=== PATIENT | male | born 1950 | race Caucasian/White ===

== ENCOUNTER 2020-08-04 09:58 | Inpatient (IN) ==
[2020-08-04] MEDS ORDERED: 0.9 % SODIUM CHLORIDE 1,000 ML IV ONE ×2 (10:37→11:49)
--- NOTE | 2020-08-04 11:02 | Cat Scan Report ---
CLINICAL INFORMATION: Acute mental status change COMPARISON: Brain MRI 06/09/2008 TECHNIQUE: 2.5 mm helical slices were obtained in the skull base to vertex. Following reconstruction, axial reformatted images were reviewed at bone and parenchymal windows. The exam was performed using radiation dose optimization techniques including, but not limited to, automated exposure control, adjustment of the mA and/or kV according to patient size and use of iterative reconstruction technique. FINDINGS: The ventricles, sulci, fissures, and cisterns are symmetrically enlarged bowel mild age-related atrophy - no change.. No extra-axial fluid collections are identified. Mild patchy chronic ischemic changes, in the deep cerebral white matter, expected for age and also unchanged. There is no evidence of hemorrhage, mass effect, or edema. Bone windows show no osseous abnormality. IMPRESSION: Mild atrophy and minimal chronic ischemic changes in the cerebral white matter expected for age and stable.. Interpreted and Authenticated by: Vipul Gaviria 08/04/20
[2020-08-04 11:13] LABS: POC Blood Urea Nitrogen 20 mg/dL (6-20); POC CO2 26 mmol/L (22-30); POC Calcium, Ionized 1.14 mmEq/L (1.16-1.32); POC Chloride 102 mEq/L (96-108); POC Creatinine 0.7 mg/dL (0.6-1.2); POC Glucose, Random 104 mg/dL (70-105); POC Hematocrit 50 % (41-55); POC Sodium 140 mEq/L (133-145)
--- NOTE | 2020-08-04 11:29 | Emergency Department Note ---
Anxiety HPI General Chief Complaint: Anxiety Stated Complaint: medication withdrawl Time Seen by Provider: 08/04/20 10:24 Source: patient, family, RN notes reviewed and old records reviewed Mode of arrival: ambulatory Limitations: no limitations History of Present Illness HPI Narrative: Narrative: complaint: anxiety Onset (ago): week(s) (1) Symptoms: dyspnea, palpitations, extremity numbness/tingling and other (Confusion) Severity: moderate and similar to previous episodes Quality: intermittent Place: home History of similar episodes: Yes Provoking factors: other (Tapering off clonazepam) Improves with: medication Worsens with: other (Insomnia) Associated symptoms: Reports palpitations and confusion; Denies chest pain, shortness of breath, diaphoresis, fever/chills, headaches, anorexia, malaise, nausea/vomiting, syncope and weakness Related Data Home Medications Medication Instructions Recorded Confirmed omeprazole 20 mg PO DAILY 09/02/16 08/04/20 Previous Rx's Medication Instructions Recorded sildenafil 100 mg tablet 100 mg PO QDAY PRN #30 tab 01/13/20 escitalopram oxalate 20 mg tablet 20 mg PO QDAY #90 tab 01/21/20 clonazepam 1 mg tablet 1 mg PO QHS #30 tab 07/20/20 Allergies Allergy/AdvReac Type Severity Reaction Status Date / Time No Known Drug Allergies Allergy Verified 08/04/20 10:03 [place] Dust Allergy Unknown Cough Uncoded 06/17/20 13:51 Review of Systems ROS ROS Narrative: Narrative: All systems ED: reviewed and negative except as stated. PFS Narrative Patient History Narrative: Narrative: Medical/Surgical/Family History All Active Problems (Updated 08/04/20 @ 16:24 by Tino Storey MD) Benzodiazepine withdrawal (Acute) Sedative, hypnotic or anxiolytic dependence with withdrawal with perceptual disturbance (Acute) Constipation (Chronic) Insomnia (Chronic) Depression (Chronic) Hyperlipidemia (Chronic) MRSA (methicillin resistant staph aureus) culture positive (Chronic ~2003) H/O knee surgery (Chronic) H/O nephrolithotomy with removal of calculi (Chronic ~01/2009) Male erectile disorder (Chronic) DDD (degenerative disc disease), thoracolumbar (Chronic) Sleep apnea (Chronic) H/O hand surgery (Chronic ~1988) H/O shoulder surgery (Chronic ~04/30/15) H/O umbilical hernia repair (Chronic ~1989) Hemorrhoids (Chronic) Kidney stones (Chronic) HTN (hypertension) (Chronic) Pre-diabetes (Chronic) Muscle pain (Chronic) Anxiety (Chronic) Acid reflux (Chronic) History of colonoscopy (Chronic) Muscle strain of right shoulder region (Chronic) Acute shoulder bursitis (Chronic) Contusion of right chest wall (Chronic) Fall (Chronic) Viral URI with cough (Chronic) Wheezing (Chronic) Laceration (Chronic) Medical History (Updated 08/04/20 @ 16:24 by Tino Storey MD) Acid reflux Acute shoulder bursitis Anxiety Continue Lexapro 20 mg daily He also takes clonazepam 2 mg nightly for sleep DDD (degenerative disc disease), thoracolumbar H/O nephrolithotomy with removal of calculi (~01/2009) Hemorrhoids HTN (hypertension) Well-controlled on lisinopril 2.5 mg daily Low-sodium diet recommended Kidney stones h/o No current complaints Male erectile disorder MRSA (methicillin resistant staph aureus) culture positive (~2003) Left hand index finger Muscle pain Muscle strain of right shoulder region Pre-diabetes Sleep apnea Surgical History H/O hand surgery (~1988) Index finger, left hand smashed H/O knee surgery Right H/O shoulder surgery (~04/30/15) Rotator cuff H/O umbilical hernia repair (~1989) History of colonoscopy Family History Father Arthritis Prostate cancer Skin cancer HTN (hypertension) Anxiety Panic disorder FH: mental illness Mother Dementia Grandfather Alzheimers disease Paternal - FH: mental illness Paternal Grandmother Heart attack Paternal - Heart disease, congenital Paternal Diabetes mellitus, type II Maternal - Cancer Maternal Uncle Heart disease, congenital Paternal CAD (coronary artery disease) Paternal Aunt Colon cancer 2 Maternal Family/Other Cancer Siblings Uterine cancer Sibilings Diverticulitis Siblings Social History Smoking Status: Never smoker Alcohol Intake Frequency: does not drink Substance Use: does not use Exam Narrative Narrative: Narrative: General Limitations: no limitations General appearance: Present alert and anxious Head Head: Present atraumatic, normocephalic and normal inspection Eye Eye: Present normal appearance, PERRL and EOMI; Absent scleral icterus and conjunctival injection ENT ENT: Present normal exam, normal oropharynx and mucous membranes moist Neck Neck: Present normal inspection, full ROM and trachea midline; Absent tenderness, lymphadenopathy and thyromegaly Chest Chest: Present normal inspection and symmetric chest wall rise; Absent tenderness Respiratory Respiratory: Present normal lung sounds bilaterally; Absent respiratory distress, wheezes, stridor, accessory muscle use and prolonged expiratory phase Cardiovascular Cardiovascular: Present regular rate and normal rhythm; Absent systolic murmur and diastolic murmur Adbominal Abdominal: Present soft; Absent distention, tenderness, guarding, rebound, rigidity, organomegaly and mass Extremities Extremities: Present normal inspection and full ROM; Absent tenderness, pedal edema, pretibial edema and calf tenderness Back Back: Present normal inspection and full ROM; Absent tenderness, CVA tenderness (R), CVA tenderness (L) and spinous process tenderness Neurological Neurological: Present alert and oriented X3 Psychiatric Psychiatric: Present agitated and anxious; Absent homicidal ideation and suicidal ideation Skin Skin: Present warm (WNL) and dry Course Vital Signs Vital signs: Vital Signs Temperature 98.4 F 08/04/20 09:59 Pulse Rate 63 08/04/20 09:59 Respiratory Rate 18 08/04/20 09:59 Blood Pressure 157/95 08/04/20 09:59 Pulse Oximetry (%) 95 08/04/20 09:59 Temperature 97.3 F 08/04/20 15:15 Pulse Rate 50 L 08/04/20 16:03 Respiratory Rate 17 08/04/20 16:03 Blood Pressure 148/89 08/04/20 15:15 Pulse Oximetry (%) 96 08/04/20 16:03 [facility] Narrative Medical decision making narrative: Narrative: Differential Diagnosis Differential Diagnosis: Behavioral disorder, benzodiazepines withdrawal, organic brain syndrome, el Medical Records Medical records reviewed: Yes I reviewed the patient's medical records. Lab Data Lab results reviewed: Yes I reviewed the patient's lab results. Result diagrams: 08/04/20 12:08 08/04/20 12:08 Labs: Lab Results 08/04/20 08/04/20 08/04/20 Range/Units 11:00 12:08 12:08 WBC 7.9 (4.5-11.0) K/mcL RBC 5.52 (4.50-5.90) M/mcL Hgb 16.9 H (13.5-16.5) g/dL Hct 49.5 (41.0-55.0) % POC Hct 50 (41-55) % MCV 89.7 (80.0-100.0) fL MCH 30.6 (26.0-34.0) pg MCHC 34.1 (31.0-36.0) g/dL RDW 11.9 (11.5-14.5) % Plt Count 173 (140-440) K/mcL MPV 10.8 H (7.4-10.4) fL Neut % (Auto) 70.0 (38.0-78.0) % Lymph % (Auto) 22.6 (15.0-49.0) % Sharkey % (Auto) 6.2 (1.0-12.0) % Eos % (Auto) 0.9 (0.0-7.0) % Baso % (Auto) 0.3 (0.0-2.0) % Lymph # (Auto) 1.78 (1.50-4.80) K/mcL Sharkey # (Auto) 0.49 (0.10-0.90) K/mcL Eos # (Auto) 0.07 (0.00-0.70) K/mcL Baso # (Auto) 0.02 (0.00-0.20) K/mcL Absolute Neutrophils 5.52 (1.80-8.00) K/mcL POC Sodium 140 (133-145) mEq/L Sodium 137 (133-145) mmol/L POC Potassium 4.0 (3.3-5.1) mEql/L Potassium 4.5 (3.3-5.1) mmol/L POC Chloride 102 (96-108) mEq/L Chloride 101 (96-108) mmol/L Carbon Dioxide 22 (22-30) mmol/L POC Total CO2 26 (22-30) mmol/L Anion Gap 14.0 (8.0-16.0) POC BUN 20 (6-20) mg/dL BUN 17 (8-23) mg/dL Creatinine 0.8 (0.7-1.2) mg/dL POC Creatinine 0.7 (0.6-1.2) mg/dL GFR Calculation 92 Glucose 92 (70-105) mg/dL POC Glucose 104 (70-105) mg/dL Calcium 9.4 (8.6-10.4) mg/dL POC WB Ioniz Calcium 1.14 L (1.16-1.32) mmEq/L Total Bilirubin 1.7 H (0.1-1.0) mg/dL AST 23 (<40) U/L ALT 10 (<40) U/L Alkaline Phosphatase 59 (39-117) U/L Total Protein 7.6 (5.9-8.4) gm/dL Albumin 4.4 (3.2-5.2) gm/dL Globulin 3.2 (2.2-3.7) gm/dL Albumin/Globulin Ratio 1.4 (1.0-2.3) TSH 1.17 (0.27-5.01) uIU/mL Urine Color Urine Appearance (Clear) Urine pH (5.0-9.0) Ur Specific [place] (1.000-1.035) Urine Protein (Negative) mg/dL Urine Glucose (UA) (Negative) mg/dL Urine Ketones (Negative) mg/dL Urine Occult Blood (Negative) mg/dL Urine Nitrate (Negative) Urine Bilirubin (Negative) mg/dL Urine Urobilinogen mg/dL Ur Leukocyte Esterase (Negative) /ug Urine RBC (0-3) /hpf Urine WBC (0-4) /hpf Ur Squamous Epith Cells (0-4) /hpf Urine Bacteria (0) /hpf Ur Culture Indicated? Urine Opiates Screen Ur Opiates Confirm Ur Oxycodone Screen Urine Methadone Screen Ur Methadone Confirm Ur Barbiturates Screen Ur Barbiturate Confirm Ur Phencyclidine Scrn Urine PCP Confirm Ur Amphetamines Screen U Amphetamines Confirm U Benzodiazepines Scrn U Benzodiazepine Confm Urine Cocaine Screen Urine Cocaine Confirm U Cannabinoids Confirm U Marijuana (THC) Screen Ethyl Alcohol (<0.010) gm/dL 08/04/20 08/04/20 08/04/20 Range/Units 12:08 12:08 14:36 WBC (4.5-11.0) K/mcL RBC (4.50-5.90) M/mcL Hgb (13.5-16.5) g/dL Hct (41.0-55.0) % POC Hct (41-55) % MCV (80.0-100.0) fL MCH (26.0-34.0) pg MCHC (31.0-36.0) g/dL RDW (11.5-14.5) % Plt Count (140-440) K/mcL MPV (7.4-10.4) fL Neut % (Auto) (38.0-78.0) % Lymph % (Auto) (15.0-49.0) % Sharkey % (Auto) (1.0-12.0) % Eos % (Auto) (0.0-7.0) % Baso % (Auto) (0.0-2.0) % Lymph # (Auto) (1.50-4.80) K/mcL Sharkey # (Auto) (0.10-0.90) K/mcL Eos # (Auto) (0.00-0.70) K/mcL Baso # (Auto) (0.00-0.20) K/mcL Absolute Neutrophils (1.80-8.00) K/mcL POC Sodium (133-145) mEq/L Sodium (133-145) mmol/L POC Potassium (3.3-5.1) mEql/L Potassium (3.3-5.1) mmol/L POC Chloride (96-108) mEq/L Chloride (96-108) mmol/L Carbon Dioxide (22-30) mmol/L POC Total CO2 (22-30) mmol/L Anion Gap (8.0-16.0) POC BUN (6-20) mg/dL BUN (8-23) mg/dL Creatinine (0.7-1.2) mg/dL POC Creatinine (0.6-1.2) mg/dL GFR Calculation Glucose (70-105) mg/dL POC Glucose (70-105) mg/dL Calcium (8.6-10.4) mg/dL POC WB Ioniz Calcium (1.16-1.32) mmEq/L Total Bilirubin (0.1-1.0) mg/dL AST (<40) U/L ALT (<40) U/L Alkaline Phosphatase (39-117) U/L Total Protein (5.9-8.4) gm/dL Albumin (3.2-5.2) gm/dL Globulin (2.2-3.7) gm/dL Albumin/Globulin Ratio (1.0-2.3) TSH (0.27-5.01) uIU/mL Urine Color Straw Urine Appearance Clear (Clear) Urine pH 6.0 (5.0-9.0) Ur Specific [place] 1.005 (1.000-1.035) Urine Protein Negative (Negative) mg/dL Urine Glucose (UA) Negative (Negative) mg/dL Urine Ketones Negative (Negative) mg/dL Urine Occult Blood 0.03 (Negative) mg/dL Urine Nitrate Negative (Negative) Urine Bilirubin Negative (Negative) mg/dL Urine Urobilinogen Negative mg/dL Ur Leukocyte Esterase Negative (Negative) /ug Urine RBC 1 (0-3) /hpf Urine WBC 2 (0-4) /hpf Ur Squamous Epith Cells 0 (0-4) /hpf Urine Bacteria None (0) /hpf Ur Culture Indicated? No Urine Opiates Screen None detected Ur Opiates Confirm TNP Ur Oxycodone Screen None detected Urine Methadone Screen None detected Ur Methadone Confirm TNP Ur Barbiturates Screen None detected Ur Barbiturate Confirm TNP Ur Phencyclidine Scrn None detected Urine PCP Confirm TNP Ur Amphetamines Screen None detected U Amphetamines Confirm TNP U Benzodiazepines Scrn None detected U Benzodiazepine Confm TNP Urine Cocaine Screen None detected Urine Cocaine Confirm TNP U Cannabinoids Confirm TNP U Marijuana (THC) Screen None detected Ethyl Alcohol < 0.010 (<0.010) gm/dL ED POC Tests ED POC Tests: NOMAN - SARS Antigen Negative Radiology Data Radiology results reviewed: Yes I reviewed the patient's radiology results. Radiology results narrative: Head CT with atrophy greater than age. EKG Data EKG #1: EKG attestation: Yes I reviewed and interpreted this EKG. EKG shows normal: sinus rhythm Rate: normal (65) Rhythm: NSR [place]/QRS: left axis deviation Hyperacute T waves: III Interpretation: nonspecific ST-T wave changes Pulse Oximetry Data Pulse Ox %: 95 Interpretation: 95% on room air within normal limits Discharge Plan Patient/Caregiver Discharge Instructions Pt seen by PASSENGER COACH DRIVER/PA only: No Clinical Impression: Benzodiazepine withdrawal Qualifiers: Complication of substance-induced condition: with delirium Qualified Code(s): F13.231 - Sedative, hypnotic or anxiolytic dependence with withdrawal delirium Patient Disposition: Xfer As Inpt ([facility]) Discharge Date/Time: 08/04/20 14:57
[2020-08-04] MEDS ORDERED: LORazepam 2 MG/ML VIAL IV ONE ×2 (11:49→12:25)
[2020-08-04] MEDS ORDERED: OLANZapine 10 MG VIAL IM SCH (12:30)
--- NOTE | 2020-08-04 12:44 | Behavioral Health Consult ---
HPI History of Present Illness Patient information: Note initiated : 08/04/20 at 12:36 pm Service Date, if different from initiated Date: [] Patient: Jose Luis Cagle 70 y/o M admitted on for medication withdrawl. Chief Complaint: [] History of present illness: Mr. Cagle is a 70 year old M Name: Jose Luis cagle : 1950 Date: 08/04/20 Time: 1519 EST Location of patient: [facility] Location of doctor: [place] Length of consult: 20 min This evaluation was conducted via telepsychiatry with the assistance of onsite staff Reason for consult: psychosis Requested by: Cordelia History of Present Illness: 70 year old male with a history of anxiety presented to the ED with psychosis after his PCP decreased his klonopin 4-5 days ago. He had been on klonopin 1mg po BID for 2 years. Attempted to see the qcop0alk who was yelling random things and appears to be responding to some one who is not there. He was telling women to quit doing it. He refused to talk as another psychiatrist told him he was not ready to be with his first . He then went on to say I am like my father in [facility], like my father in [facility]. bay tells him no. he did answer the klonopin was decreased 4 days ago and he has not slept. He reports bad anxiety. I have the holy spirit in my body Collateral contacted (Y/N) no____. Name Phone # , Relationship to the patient___ . If N, (No Answer/None available/Patient meets criteria for admission/Other free text reason) needs admission Sleep issues: Y- Quantity: 0 hours Quality: Psychiatric History/Treatment History: follows with a PCP for anxiety Hospitalizations: (Y/N) if Y describe: unknown Current Treatment: Medication management (Y/N) noTherapy (Y/N) no Suicide Assessment: PSS-3: 1) Over the past 2 weeks have you felt down, depressed or hopeless? (Y/N) no 2) Over the past 2 weeks have you had thoughts of killing yourself? (Y/N) no 3) Have you ever in your life attempted to kill yourself? (Y/N) no If yes, then when? Within the past 24h? (Y/N), past month? (Y/N), between 1-6 months (Y/N), > 6 months (Y/N) PSS-3 Secondary Screen If #2 is yes or #3 is yes within the past 6 months, then complete secondary screen: 1) Positive on PSS-3 questions 2 & 3 active SI with a past attempt? (Y/N) 2) Have you been thinking about how you might kill yourself? (Y/N) 3) Have you had some intention of acting on your thoughts? (Y/N) 4) Lifetime psychiatric hospitalization? (Y/N) 5) Has drinking or substance abuse ever been a problem for you? (Y/N) 6) Current irritability, agitation, or aggression? (Y/N) PSS-3 Secondary Screen Scoring: (Mild/Moderate/Severe) Mild (0-2) No current attempt and no plan/intent Moderate (3-4) No current attempt, Plan OR intent but not both Severe (5-6) Current [facility] with [facility] AND [facility] Assessment: Risk Factors h/o anxiety Stressors: medication change Attempts/Self-injury: Y/N if Y then describe: unable to assess Impulsivity: Y/N if Y then describe : unable to assess Drug/Alcohol History: Y/N - if Y then describe: unable to assess Trauma history: Y/N - if Y then describe: unable to assess Access to firearms: Y/N - if Y then describe: unable to assess HI/Violence/Property destruction: Y/N - if Y then describe: unable to assess Legal: Y/N - if Y then describe: unable to assess Family Psych History: Y/N - if Y then describe: mother dementia, denies psychiatric history Family History of suicide: (Y/N) Protective Factors Internal: coping skills, stress tolerance, External: Social supports/ Therapeutic relationships: Y/N - if Y then describe family Relationship history: Living situation: Homeless Y/N if no describe: with Employment: Y/N - if Y then describe: unable to assess Education: unable to assess Responsibility to family/children/work: Y/N - if Y then describe: unable to assess Future orientation: Y/N - if Y then describe: unable to assess Review of Systems ROS unobtainable: due to mental status PFSH PFSH All Active Problems Sedative, hypnotic or anxiolytic dependence with withdrawal with perceptual disturbance (Acute) Constipation (Chronic) Insomnia (Chronic) Depression (Chronic) Hyperlipidemia (Chronic) MRSA (methicillin resistant staph aureus) culture positive (Chronic ~2003) H/O knee surgery (Chronic) H/O nephrolithotomy with removal of calculi (Chronic ~01/2009) Male erectile disorder (Chronic) DDD (degenerative disc disease), thoracolumbar (Chronic) Sleep apnea (Chronic) H/O hand surgery (Chronic ~1988) H/O shoulder surgery (Chronic ~04/30/15) H/O umbilical hernia repair (Chronic ~1989) Hemorrhoids (Chronic) Kidney stones (Chronic) HTN (hypertension) (Chronic) Pre-diabetes (Chronic) Muscle pain (Chronic) Anxiety (Chronic) Acid reflux (Chronic) History of colonoscopy (Chronic) Muscle strain of right shoulder region (Chronic) Acute shoulder bursitis (Chronic) Contusion of right chest wall (Chronic) Fall (Chronic) Viral URI with cough (Chronic) Wheezing (Chronic) Laceration (Chronic) Medical History Acid reflux Acute shoulder bursitis Anxiety Continue Lexapro 20 mg daily He also takes clonazepam 2 mg nightly for sleep DDD (degenerative disc disease), thoracolumbar H/O nephrolithotomy with removal of calculi (~01/2009) Hemorrhoids HTN (hypertension) Well-controlled on lisinopril 2.5 mg daily Low-sodium diet recommended Kidney stones h/o No current complaints Male erectile disorder MRSA (methicillin resistant staph aureus) culture positive (~2003) Left hand index finger Muscle pain Muscle strain of right shoulder region Pre-diabetes Sleep apnea Surgical History H/O hand surgery (~1988) Index finger, left hand smashed H/O knee surgery Right H/O shoulder surgery (~04/30/15) Rotator cuff H/O umbilical hernia repair (~1989) History of colonoscopy Family History Father Arthritis Prostate cancer Skin cancer HTN (hypertension) Anxiety Panic disorder FH: mental illness Mother Dementia Grandfather Alzheimers disease Paternal - FH: mental illness Paternal Grandmother Heart attack Paternal - Heart disease, congenital Paternal Diabetes mellitus, type II Maternal - Cancer Maternal Uncle Heart disease, congenital Paternal CAD (coronary artery disease) Paternal Aunt Colon cancer 2 Maternal Family/Other Cancer Siblings Uterine cancer Sibilings Diverticulitis Siblings Social History marital status: occupational status: employed occupation: [employer] alcohol intake frequency: does not drink substance use type: does not use MEDS/ALLERGIES Home Medications and Allergies Home Medications Medication Instructions Recorded Confirmed Type omeprazole 20 mg PO DAILY 09/02/16 08/04/20 History sildenafil 100 mg tablet 100 mg PO QDAY PRN #30 tab 01/13/20 08/04/20 Rx escitalopram oxalate 20 mg tablet 20 mg PO QDAY #90 tab 01/21/20 08/04/20 Rx clonazepam 1 mg tablet 1 mg PO QHS #30 tab 07/20/20 08/04/20 Rx Allergies Allergy/AdvReac Type Severity Reaction Status Date / Time No Known Drug Allergies Allergy Verified 08/04/20 10:03 [place] Dust Allergy Unknown Cough Uncoded 06/17/20 13:51 Physical Examination Vital Signs Vital signs: Temp Pulse Resp BP Pulse Ox 98.4 F 72 18 163/108 95 08/04/20 09:59 08/04/20 12:23 08/04/20 09:59 08/04/20 12:23 08/04/20 12:23 Constitutional General appearance: no acute distress Psychiatric Psychiatric: other Additional Exam Additional exam: Mental Status Exam: Appearance and attire: he is casually groomed and dressed Attitude and behavior: laying in bed yelling Psychomotor agitation/abnormal movements: mild psychomotor agitation Speech: loud and rapid Affect and mood: labile Association and thought processes: loose associations Thought content: grandiose and religiously preoccupied Perception: he is yelling at unseen others and hearing voices Sensorium, memory, and orientation: alert and oriented to person Intellectual functioning: average Insight and judgment: poor Results Laboratory Findings CBC and BMP: 08/04/20 12:08 08/04/20 12:08 Abnormal lab findings: Abnormal Labs 08/04/20 11:00 POC WB Ioniz Calcium 1.14 L Alcohol Toxicology: ABG 08/04/20 12:08 Ethyl Alcohol Pending A/P Assessment and plan (1) Sedative, hypnotic or anxiolytic dependence with withdrawal with perceptual disturbance: Status: Acute Comment: Impression/Risk Assessment: Current Suicide Risk (Elevated? Y/N):no Current Violence Risk (Elevated? Y/N): yes Ability to care for self: Y/N no Summary: 70 yearold caucasin male with a history of anxiety who presented to the ED with psychosis after no sleeping when his klonopin was decreased rom 1mg po BID to 1 mg po q hs and he is religiously preoccupied tangential and hallucinating. Recommend to admit for sedative hypnotic withdrawal Diagnosis: Sedative hypnotic dependence withdrawal r/o bipolar with danette CPT code: 93334 Treatment Plan Admit for medical management of withdrawal Level of Care: inpatient Psychiatric Clearance: no Observation level 1:1 needed?: yes Pharmacological: Zyprexa 10mg IM q 4 hours prn agitation Recommend CIWA protocol and Ativan 2 mg q 2 hours prn for withdrawal Patient psychotic? Y/N if Y was standing antipsychotic medication started Y/N yes Therapy: supportive Follow up needed while in hospital?: Y/N/NA if Y then frequency, yes daily Discussed plan with onsite count team clerk, who? (Y/N): Who ED physician Other: Time Spent With Patient Time: 20 min Total time spent is greater than 50% in coordination of care (as documented) at patient's floor/unit and/or counseling patient:
--- NOTE | 2020-08-04 14:26 | Internal Med History&Physical ---
HPI History of Present Illness Patient information: Note initiated : 08/04/20 at 2:22 pm Service Date, if different from initiated Date: [] Patient: Jose Luis Meyer a 70 y/o M admitted on for medication withdrawl. Chief Complaint: [] History of present illness: Mr. Meyer is a 70 year old male with a history of hyperlipidemia, depression, generalized anxiety disorder, insomnia who presented to the emergency department feeling anxious. In the ED the patient developed agitation requiring Zyprexa administration. His clinical picture was consistent with benzodiazepine withdrawal as his provider had recently been trying to taper clonazepam. The patient was given Ativan multiple times, his anxiety and withdrawal symptoms improved. Hospital medicine was asked to admit the patient for further management. After receiving multiple doses of Ativan, the patient appeared calm and was able to provide some history. The patient's provided collateral information and said the patient ran out of clonazepam about four days ago and was then prescribed a lower tapering dose but developed anxiety and behavioral changes. The patient was brought the the ED and initially agitated but calmed down after multiple doses of ativan and a dose of zyprexa. Review of systems Constitutional: no fever, fatigue, or weight loss Eyes: no vision changes or pain Cardiovascular: no chest pain, no palpitations Respiratory: no cough or dyspnea Gastrointestinal: no abdominal pain, no nausea, vomiting, or diarrhea Genitourinary: no dysuria or difficulty voiding Musculoskeletal: no arthralgia or myalgia Integumentary: no skin lesion or wound Neurological: no focal weakness or numbness Psychiatric: positive for anxiety Physical exam Head: Atraumatic, normal inspection. Eyes: normal appearance, no scleral icterus. Neck: full ROM Respiratory: no respiratory distress. Cardiovascular: normal rate and rhythm, S1, S2. GI/Abdominal: soft, nontender, no guarding. Extremities: full range of motion, nontender. Neurological: Alert and oriented, CN II-XII intact, intact motor, intact sensation. Psychiatric: Appears anxious, negative for agitation, negative for hallucinations. Skin: warm, normal color PFSH PFSH All Active Problems Sedative, hypnotic or anxiolytic dependence with withdrawal with perceptual disturbance (Acute) Constipation (Chronic) Insomnia (Chronic) Depression (Chronic) Hyperlipidemia (Chronic) MRSA (methicillin resistant staph aureus) culture positive (Chronic ~2003) H/O knee surgery (Chronic) H/O nephrolithotomy with removal of calculi (Chronic ~01/2009) Male erectile disorder (Chronic) DDD (degenerative disc disease), thoracolumbar (Chronic) Sleep apnea (Chronic) H/O hand surgery (Chronic ~1988) H/O shoulder surgery (Chronic ~04/30/15) H/O umbilical hernia repair (Chronic ~1989) Hemorrhoids (Chronic) Kidney stones (Chronic) HTN (hypertension) (Chronic) Pre-diabetes (Chronic) Muscle pain (Chronic) Anxiety (Chronic) Acid reflux (Chronic) History of colonoscopy (Chronic) Muscle strain of right shoulder region (Chronic) Acute shoulder bursitis (Chronic) Contusion of right chest wall (Chronic) Fall (Chronic) Viral URI with cough (Chronic) Wheezing (Chronic) Laceration (Chronic) Medical History Acid reflux Acute shoulder bursitis Anxiety Continue Lexapro 20 mg daily He also takes clonazepam 2 mg nightly for sleep DDD (degenerative disc disease), thoracolumbar H/O nephrolithotomy with removal of calculi (~01/2009) Hemorrhoids HTN (hypertension) Well-controlled on lisinopril 2.5 mg daily Low-sodium diet recommended Kidney stones h/o No current complaints Male erectile disorder MRSA (methicillin resistant staph aureus) culture positive (~2003) Left hand index finger Muscle pain Muscle strain of right shoulder region Pre-diabetes Sleep apnea Surgical History H/O hand surgery (~1988) Index finger, left hand smashed H/O knee surgery Right H/O shoulder surgery (~04/30/15) Rotator cuff H/O umbilical hernia repair (~1989) History of colonoscopy Family History Father Arthritis Prostate cancer Skin cancer HTN (hypertension) Anxiety Panic disorder FH: mental illness Mother Dementia Grandfather Alzheimers disease Paternal - FH: mental illness Paternal Grandmother Heart attack Paternal - Heart disease, congenital Paternal Diabetes mellitus, type II Maternal - Cancer Maternal Uncle Heart disease, congenital Paternal CAD (coronary artery disease) Paternal Aunt Colon cancer 2 Maternal Family/Other Cancer Siblings Uterine cancer Sibilings Diverticulitis Siblings Social History marital status: occupational status: employed occupation: [employer] alcohol intake frequency: does not drink substance use type: does not use MEDS/ALLERGIES Home Medications and Allergies Home Medications Medication Instructions Recorded Confirmed Type omeprazole 20 mg PO DAILY 09/02/16 08/04/20 History sildenafil 100 mg tablet 100 mg PO QDAY PRN #30 tab 01/13/20 08/04/20 Rx escitalopram oxalate 20 mg tablet 20 mg PO QDAY #90 tab 01/21/20 08/04/20 Rx clonazepam 1 mg tablet 1 mg PO QHS #30 tab 07/20/20 08/04/20 Rx Allergies Allergy/AdvReac Type Severity Reaction Status Date / Time No Known Drug Allergies Allergy Verified 08/04/20 10:03 [place] Dust Allergy Unknown Cough Uncoded 06/17/20 13:51 EXAM Constitutional Vitals: Temp Pulse Resp BP Pulse Ox 98.4 F 51 L 18 126/78 97 08/04/20 09:59 08/04/20 14:07 08/04/20 09:59 08/04/20 14:01 08/04/20 14:07 DATA Data Completed and Pending Labs: Labs from last 24 hours 08/04/20 08/04/20 08/04/20 12:08 12:08 12:08 WBC RBC Hgb Hct POC Hct MCV MCH MCHC RDW Plt Count MPV Neut % (Auto) POC Sodium Sodium Pending POC Potassium Potassium Pending POC Chloride Chloride Pending Carbon Dioxide Pending POC Total CO2 Anion Gap Pending POC BUN BUN Pending Creatinine Pending POC Creatinine GFR Calculation Pending Glucose Pending POC Glucose Calcium Pending POC WB Ioniz Calcium Total Bilirubin Pending AST Pending ALT Pending Alkaline Phosphatase Pending Total Protein Pending Albumin Pending Globulin Pending Albumin/Globulin Ratio Pending TSH Pending Urine Opiates Screen Pending Ur Opiates Confirm Pending Ur Oxycodone Screen Pending Urine Methadone Screen Pending Ur Methadone Confirm Pending Ur Barbiturates Screen Pending Ur Barbiturate Confirm Pending Ur Phencyclidine Scrn Pending Urine PCP Confirm Pending Ur Amphetamines Screen Pending U Amphetamines Confirm Pending U Benzodiazepines Scrn Pending U Benzodiazepine Confm Pending Urine Cocaine Screen Pending Urine Cocaine Confirm Pending U Cannabinoids Confirm Pending U Marijuana (THC) Screen Pending Ethyl Alcohol Pending 08/04/20 08/04/20 12:08 11:00 WBC Pending RBC Pending Hgb Pending Hct Pending POC Hct 50 MCV Pending MCH Pending MCHC Pending RDW Pending Plt Count Pending MPV Pending Neut % (Auto) Pending POC Sodium 140 Sodium POC Potassium 4.0 Potassium POC Chloride 102 Chloride Carbon Dioxide POC Total CO2 26 Anion Gap POC BUN 20 BUN Creatinine POC Creatinine 0.7 GFR Calculation Glucose POC Glucose 104 Calcium POC WB Ioniz Calcium 1.14 L Total Bilirubin AST ALT Alkaline Phosphatase Total Protein Albumin Globulin Albumin/Globulin Ratio TSH Urine Opiates Screen Ur Opiates Confirm Ur Oxycodone Screen Urine Methadone Screen Ur Methadone Confirm Ur Barbiturates Screen Ur Barbiturate Confirm Ur Phencyclidine Scrn Urine PCP Confirm Ur Amphetamines Screen U Amphetamines Confirm U Benzodiazepines Scrn U Benzodiazepine Confm Urine Cocaine Screen Urine Cocaine Confirm U Cannabinoids Confirm U Marijuana (THC) Screen Ethyl Alcohol A/P Narrative A/P Narrative: Assessment: 10 year old male with a history of hyperlipidemia, depression, generalized anxiety disorder, insomnia admitted for benzodiazepine withdrawal. Prior to admission, the patient was tapering off clonazepam however ran out of clonazepam about 4 days ago. #Benzodiazepine withdrawal (clonazepam) #Depression #Generalized anxiety disorder #Hyperlipidemia #GERD Plan -CIWA protocol with Ativan PO/IV as needed. -As needed Precedex in case patient develops severe agitation due to withdrawal. -Haldol IV as needed for severe agitation. -Continue home Lexapro, Prilosec. -CODE STATUS: Full -Disposition: Home after completing withdrawal. Time Spent With Patient Time: Total time spent is greater than 50% in coordination of care (as documented) at patient's floor/unit and/or counseling patient:
--- NOTE | 2020-08-04 14:55 | EKG ---
[facility] Test Date: 2020-08-04 Pat Name: Jose Luis Meyer Department: ED Room: Gender: Male [employer] Operator: : 1950 Requested By: Tino Storey Order Number: [id number] Reading MD: Chris Goldberg M.D. Measurements Intervals [place] Rate: 65 P: 52 LA: 165 QRS: -22 QRSD: 108 T: 1 QT: 434 QTc: 452 Interpretive Statements Sinus rhythm Borderline T abnormalities, inferior leads NO PRIOR TRACING FOR COMPARISON Electronically Signed On 08-04-2020 14:55:35 PDT by Chris Goldberg M.D. /[email or web address]/[id number]
[2020-08-04] MEDS ORDERED: LORazepam 2 MG/ML VIAL IV PRN (15:12)
[2020-08-04] MEDS ORDERED: ONDANSETRON 4 MG/2 ML VIAL IV PRN (15:12)
[2020-08-04] MEDS ORDERED: HALOPERIDOL LACTATE 5 MG/ML VIAL IV PRN (15:12)
[2020-08-04] MEDS ORDERED: DEXMEDETOMIDINE 400 MCG in PREMIX 1 BAG IV PRN (15:12)
[2020-08-04] MEDS ORDERED: LORazepam 1 MG TABLET PO PRN (15:12)
[2020-08-04] MEDS ORDERED: SENNOSIDES 1 TABLET PO PRN (15:12)
[2020-08-04] MEDS ORDERED: LACTULOSE 20 GM/30 ML ORAL.SOL PO PRN (15:12)
[2020-08-04 15:31] LABS: Basophils # (Auto) 0.02 K/mcL (0.00-0.20); Basophils % (Auto) 0.3 % (0.0-2.0); Eosinophils # (Auto) 0.07 K/mcL (0.00-0.70); Eosinophils % (Auto) 0.9 % (0.0-7.0); Hematocrit 49.5 % (41.0-55.0); Hemoglobin 16.9 g/dL (13.5-16.5); Lymphocytes # (Auto) 1.78 K/mcL (1.50-4.80); Lymphocytes % (Auto) 22.6 % (15.0-49.0); Mean Cell Volume 89.7 fL (80.0-100.0); Mean Corpuscular HGB Conc 34.1 g/dL (31.0-36.0); Mean Platelet Volume 10.8 fL (7.4-10.4); Monocytes # (Auto) 0.49 K/mcL (0.10-0.90); Monocytes % (Auto) 6.2 % (1.0-12.0); Platelet Count 173 K/mcL (140-440); RBC 5.52 M/mcL (4.50-5.90); Red Cell Distribution Width 11.9 % (11.5-14.5); WBC 7.9 K/mcL (4.5-11.0)
[2020-08-04 15:33] LABS: Amphetamine Screen,Urine None detected; Barbiturate Screen,Urine None detected; Benzodiazepines Screen,Urine None detected; Cannabinoid Screen,Urine None detected; Cocaine Screen,Urine None detected; Opiate Screen,Urine None detected; Oxycodone, Urine Screen None detected; Phencyclidine Screen,Urine None detected
[2020-08-04 15:41] LABS: Alcohol, Blood < 10.0 mg/dL; Alcohol,Blood < 0.010 gm/dL (<0.010)
[2020-08-04 15:43] LABS: Appearance,Urine CLEAR (Clear); Bilirubin,Urine Negative (Negative); Color,Urine STRAW; Culture Indicated,Urine No; Glucose,Urine (UA) Negative (Negative); Ketones,Urine Negative (Negative); Leukocyte Esterase,Urine Negative /ug (Negative); Nitrate,Urine Negative (Negative); Protein,Urine Negative (Negative); Specific Gravity,Urine 1.005 (1.000-1.035); Urine Blood 0.03 mg/dL (Negative); Urine RBC 1 /hpf (0-3); Urine Squamous Epithelial Cell 0 /hpf (0-4); Urine WBC 2 /hpf (0-4); Urobilinogen,Urine Negative
[2020-08-04 15:54] LABS: ALT/SGPT 10 U/L (<40); AST/SGOT 23 U/L (<40); Albumin 4.4 gm/dL (3.2-5.2); Albumin/Globulin Ratio 1.4 (1.0-2.3); Alkaline Phosphatase 59 U/L (39-117); Bilirubin,Total 1.7 mg/dL (0.1-1.0); Blood Urea Nitrogen 17 mg/dL (8-23); Calcium 9.4 mg/dL (8.6-10.4); Carbon Dioxide 22 mmol/L (22-30); Chloride 101 mmol/L (96-108); Globulin 3.2 gm/dL (2.2-3.7); Glomerular Filtration Rate 92; Glucose 92 mg/dL (70-105); Thyroid Stimulating Hormone 1.17 uIU/mL (0.27-5.01)
[2020-08-04] MEDS: DOCUSATE SODIUM 100 MG CAPSULE PO SCH (21:04)
[2020-08-04] MEDS ORDERED: 0.9 % SODIUM CHLORIDE 10 ML SYRINGE IV SCH (22:00)
[2020-08-04] MEDS: 0.9 % SODIUM CHLORIDE 10 ML SYRINGE IV SCH (22:19)
[2020-08-05] MEDS: 0.9 % SODIUM CHLORIDE 10 ML SYRINGE IV SCH ×3 (05:53→22:31)
[2020-08-05 07:08] LABS: Basophils # (Auto) 0.04 K/mcL (0.00-0.20); Basophils % (Auto) 0.5 % (0.0-2.0); Eosinophils % (Auto) 3.5 % (0.0-7.0); Hematocrit 47.7 % (41.0-55.0); Hemoglobin 15.8 g/dL (13.5-16.5); Lymphocytes # (Auto) 2.36 K/mcL (1.50-4.80); Lymphocytes % (Auto) 27.3 % (15.0-49.0); Mean Cell Volume 91.4 fL (80.0-100.0); Mean Corpuscular HGB Conc 33.1 g/dL (31.0-36.0); Mean Platelet Volume 10.4 fL (7.4-10.4); Monocytes # (Auto) 0.62 K/mcL (0.10-0.90); Monocytes % (Auto) 7.2 % (1.0-12.0); Neutrophils % (Auto) 61.5 % (38.0-78.0); Platelet Count 155 K/mcL (140-440); RBC 5.22 M/mcL (4.50-5.90); Red Cell Distribution Width 12.1 % (11.5-14.5); WBC 8.6 K/mcL (4.5-11.0)
[2020-08-05 07:44] LABS: ALT/SGPT 11 U/L (<40); AST/SGOT 15 U/L (<40); Albumin 3.8 gm/dL (3.2-5.2); Albumin/Globulin Ratio 1.4 (1.0-2.3); Alkaline Phosphatase 58 U/L (39-117); Blood Urea Nitrogen 16 mg/dL (8-23); Carbon Dioxide 29 mmol/L (22-30); Chloride 102 mmol/L (96-108); Globulin 2.7 gm/dL (2.2-3.7); Glomerular Filtration Rate 92; Glucose 85 mg/dL (70-105)
[2020-08-05] MEDS: OMEPRAZOLE 20 MG CAPSULE PO SCH (07:49)
[2020-08-05] MEDS: ESCITALOPRAM 20 MG TABLET PO SCH (09:06)
[2020-08-05] MEDS: clonazePAM 1 MG TABLET PO SCH (09:06)
[2020-08-05] MEDS: DOCUSATE SODIUM 100 MG CAPSULE PO SCH ×2 (09:06→21:51)
--- NOTE | 2020-08-05 10:26 | Internal Med Progress Note ---
SUBJECTIVE Subjective Patient information: Note initiated : 08/05/20 at 10:21 am Service Date, if different from initiated Date: [] Patient: Jose Luis Meeyr 70 y/o M admitted on 08/04/20 for medication withdrawl. Chief Complaint: [] Interval history: Mr. Meyer is a 70 year old male with a history of hyperlipidemia, depression, generalized anxiety disorder, insomnia who presented to the emergency department feeling anxious. In the ED the patient developed agitation requiring Zyprexa administration. His clinical picture was consistent with benzodiazepine withdrawal as his provider had recently been trying to taper clonazepam. The patient was given Ativan multiple times, his anxiety and withdrawal symptoms improved. Hospital medicine was asked to admit the patient for further management. After receiving multiple doses of Ativan, the patient appeared calm and was able to provide some history. The patient's provided collateral information and said the patient ran out of clonazepam about four days ago and was then prescribed a lower tapering dose but developed anxiety and behavioral changes. The patient was brought the the ED and initially agitated but calmed down after multiple doses of ativan and a dose of zyprexa. 08/05 Slept well most of last night, received Ativan 2 mg PO for withdrawal symptoms. Started Clonazepam 1 mg daily today, will monitor for withdrawal symptoms through tomorrow. If no withdrawal symptoms then could discharge on Clonazepam 1 mg daily with 25% reduction in dose every 7 days. If a higher dose required then could still use a 25% dose reduction every 7 days from discharge dose. Patient ok with staying another night. Review of systems: does not feel anxious, no shortness of breath, no chest pain Physical exam Head: Atraumatic, normal inspection. Eyes: normal appearance, no scleral icterus. Neck: full ROM Respiratory: no respiratory distress. Cardiovascular: normal rate and rhythm, S1, S2. GI/Abdominal: soft, nontender, no guarding. Extremities: full range of motion, nontender. Neurological: Alert and oriented, CN II-XII intact, intact motor, intact sensation. Psychiatric: Normal mood. Skin: warm, normal color Constitutional Vitals: Vital Signs Temp Pulse Resp BP Pulse Ox 99.0 F 77 17 144/92 96 08/05/20 08:08 08/05/20 08:08 08/05/20 08:08 08/05/20 08:01 08/05/20 08:08 Period Temp Pulse Resp BP Sys/[place] Pulse Ox Last 24 Hr 97.3 F-99.0 F 48-80 15-21 102-203/64-127 92-99 Intake and Output 08/04/20 08/05/20 08/05/20 21:59 05:59 13:59 Intake Total 0 Output Total 350 350 Balance -350 -350 Weight 85.684 kg Intake & Output: Intake & Output 08/04/20 08/05/20 08/05/20 21:59 05:59 13:59 Intake Total 0 Output Total 350 350 Balance -350 -350 Weight 85.684 kg Intake: Oral 0 Output: Void Amount 350 350 Other: Meal Dinner Percent of Meal Consumed 100% Feeding Ability Independent Urine Appearance Clear Urine Color Dark Yellow Pale Urine Odor Normal OBJ DATA Labs CBC & Chem 7: 08/05/20 05:32 08/05/20 05:32 Labs: Abnormal Lab Results 08/05/20 08/04/20 08/04/20 05:32 12:08 12:08 Hgb 16.9 H MPV 10.8 H Anion Gap 7.0 L POC WB Ioniz Calcium Total Bilirubin 1.7 H 08/04/20 11:00 Hgb MPV Anion Gap POC WB Ioniz Calcium 1.14 L Total Bilirubin Meds: Medications Clonazepam (Clonazepam 1 Mg Tablet) 1 mg PO DAILY [facility] Last Admin: 08/05/20 09:06 Dose: 1 mg Documented by: Docusate Sodium (Docusate Sodium 100 Mg Capsule) 100 mg PO BID [facility] Last Admin: 08/05/20 09:06 Dose: 100 mg Documented by: Escitalopram Oxalate (Escitalopram 20 Mg Tablet) 20 mg PO DAILY [facility] Last Admin: 08/05/20 09:06 Dose: 20 mg Documented by: Lactulose (Lactulose 20 Gm/30 Ml Oral.Shelli) 10 gm PO DAILYP PRN PRN Reason: Constipation Omeprazole (Omeprazole 20 Mg Capsule) 20 mg PO ACB [facility] Last Admin: 08/05/20 07:49 Dose: 20 mg Documented by: Ondansetron HCl (Ondansetron 4 Mg/2 Ml Vial) 4 mg IV Q4HP PRN; Protocol PRN Reason: Nausea And Vomiting Senna (Sennosides 1 Tablet) 2 tab PO HSP PRN PRN Reason: Constipation Sodium Chloride (0.9 % Sodium Chloride 10 Ml Syringe) 10 ml IV Q8 [facility] Last Admin: 08/05/20 05:53 Dose: 10 ml Documented by: A/P Narrative A/P Narrative: Assessment: 10 year old male with a history of hyperlipidemia, depression, generalized anxiety disorder, insomnia admitted for benzodiazepine withdrawal. Prior to admission, the patient was tapering off clonazepam however ran out of clonazepam about 4 days ago. #Benzodiazepine withdrawal (clonazepam) #Depression #Generalized anxiety disorder #Hyperlipidemia #GERD Plan -Start Clonazepam 1 mg daily, monitor for withdrawal. -Clonazepam .25 mg prn for withdrawal symptoms. -Continue home Lexapro, Prilosec. -CODE STATUS: Full -Disposition: Home after baseline dose of clonazepam is established followed by a prolonged taper. The most simple taper would probably be a 25% dose reduction every 7 days. Time Spent With Patient Time: Total time spent is greater than 50% in coordination of care (as documented) at patient's floor/unit and/or counseling patient: QUALITY Stroke Symptom Onset Unknown: No VTE Deep Vein Thrombosis/Pulmonary Embolism Present on Admission: No
[2020-08-05] MEDS ORDERED: clonazePAM 0.5 MG TABLET PO PRN (11:00)
--- NOTE | 2020-08-05 13:25 | Discharge Summary ---
Discharge Provider Provider Patient information: Note initiated : 08/05/20 at 1:23 pm Service Date, if different from initiated Date: [] Patient: Jose Luis Meyer 70 y/o M admitted on 08/04/20 for medication withdrawl. Chief Complaint: [] Date of admission: 08/04/20 14:57 Discharge date: 08/06/20 Primary care physician: Ramez Elam M.D., F.A.A.F.P. Consults: 08/04/20 Consult to Physician [CONS] Stat Comment: Consulting Provider: [facility] Reason For Exam: Physician to Consult 08/04/20 12:32 Consult to Physician [CONS] Stat Comment: Consulting Provider: Charles Mcmanus Reason For Exam: Physician to Consult Discharge Meds Discharge Medications Home Medications omeprazole 20 mg PO DAILY 09/02/16 [History Confirmed 08/04/20 Last Taken 08/03/20] sildenafil 100 mg tablet 100 mg PO QDAY PRN #30 tab 01/13/20 [Rx Confirmed 08/04/20 Last Taken Unknown] escitalopram oxalate 20 mg tablet 20 mg PO QDAY #90 tab 01/21/20 [Rx Confirmed 08/04/20 Last Taken 08/03/20] clonazepam See Rx Instructions .ROUTE .COMPLEX #25 tab 08/06/20 [Rx Last Taken Unknown] COURSE Hospital Course Hospital course: Interval history: Mr. Meyer is a 70 year old male with a history of hyperlipidemia, depression, generalized anxiety disorder, insomnia who presented to the emergency department feeling anxious. In the ED the patient developed agitation requiring Zyprexa administration. His clinical picture was consistent with benzodiazepine withdrawal as his provider had recently been trying to taper clonazepam. The patient was given Ativan multiple times, his anxiety and withdrawal symptoms improved. Hospital medicine was asked to admit the patient for further management. After receiving multiple doses of Ativan, the patient appeared calm and was able to provide some history. The patient's provided collateral information and said the patient ran out of clonazepam about four days ago and was then prescribed a lower tapering dose but developed anxiety and behavioral changes. The patient was brought the the ED and initially agitated but calmed down after multiple doses of ativan and a dose of zyprexa. 08/05 Slept well most of last night, received Ativan 2 mg PO for withdrawal symptoms. Started Clonazepam 1 mg daily today, will monitor for withdrawal symptoms through tomorrow. If no withdrawal symptoms then could discharge on Clonazepam 1 mg daily with 25% reduction in dose every 7 days. If a higher dose required then could still use a 25% dose reduction every 7 days from discharge dose. Patient ok with staying another night. 08/06 Feeling well. No overnight event or new complaints. Directed patient to monitor blood pressure twice daily and bring log to PCP. Assessment: #Benzodiazepine withdrawal (clonazepam) #Depression #Generalized anxiety disorder #Hyperlipidemia #GERD Discharge diagnosis: Benzodiazepine withdrawal Secondary discharge diagnosis: Depression anxiety hyperlipidemia GERD Time Spent with Patient Time attestation: Total time spent providing and/or coordinating discharge services: Time spent: Greater than 30 minutes EXAM Constitutional Vitals: Temp Pulse Resp BP Pulse Ox 98.2 F 58 L 18 118/80 96 08/05/20 12:01 08/05/20 12:04 08/05/20 12:04 08/05/20 12:01 08/05/20 12:04 Discharge Data Data Completed and Pending Labs on day of discharge: Labs from last 24 hours 08/05/20 08/05/20 08/05/20 05:32 05:32 05:32 WBC 8.6 RBC 5.22 Hgb 15.8 Hct 47.7 MCV 91.4 MCH 30.3 MCHC 33.1 RDW 12.1 Plt Count 155 MPV 10.4 Neut % (Auto) 61.5 Lymph % (Auto) 27.3 Perry % (Auto) 7.2 Eos % (Auto) 3.5 Baso % (Auto) 0.5 Lymph # (Auto) 2.36 Perry # (Auto) 0.62 Eos # (Auto) 0.30 Baso # (Auto) 0.04 Absolute Neutrophils 5.31 Sodium 138 Potassium 4.3 Chloride 102 Carbon Dioxide 29 Anion Gap 7.0 L BUN 16 Creatinine 0.8 GFR Calculation 92 Glucose 85 Calcium 9.0 Magnesium 2.1 Total Bilirubin 1.0 AST 15 ALT 11 Alkaline Phosphatase 58 Total Protein 6.5 Albumin 3.8 Globulin 2.7 Albumin/Globulin Ratio 1.4 TSH Urine Color Urine Appearance Urine pH Ur Specific Gibson Urine Protein Urine Glucose (UA) Urine Ketones Urine Occult Blood Urine Nitrate Urine Bilirubin Urine Urobilinogen Ur Leukocyte Esterase Urine RBC Urine WBC Ur Squamous Epith Cells Urine Bacteria Ur Culture Indicated? Urine Opiates Screen Ur Opiates Confirm Ur Oxycodone Screen Urine Methadone Screen Ur Methadone Confirm Ur Barbiturates Screen Ur Barbiturate Confirm Ur Phencyclidine Scrn Urine PCP Confirm Ur Amphetamines Screen U Amphetamines Confirm U Benzodiazepines Scrn U Benzodiazepine Confm Urine Cocaine Screen Urine Cocaine Confirm U Cannabinoids Confirm U Marijuana (THC) Screen Ethyl Alcohol 08/04/20 08/04/20 08/04/20 14:36 12:08 12:08 WBC RBC Hgb Hct MCV MCH MCHC RDW Plt Count MPV Neut % (Auto) Lymph % (Auto) Perry % (Auto) Eos % (Auto) Baso % (Auto) Lymph # (Auto) Perry # (Auto) Eos # (Auto) Baso # (Auto) Absolute Neutrophils Sodium Potassium Chloride Carbon Dioxide Anion Gap BUN Creatinine GFR Calculation Glucose Calcium Magnesium Total Bilirubin AST ALT Alkaline Phosphatase Total Protein Albumin Globulin Albumin/Globulin Ratio TSH Urine Color Straw Urine Appearance Clear Urine pH 6.0 Ur Specific Gibson 1.005 Urine Protein Negative Urine Glucose (UA) Negative Urine Ketones Negative Urine Occult Blood 0.03 Urine Nitrate Negative Urine Bilirubin Negative Urine Urobilinogen Negative Ur Leukocyte Esterase Negative Urine RBC 1 Urine WBC 2 Ur Squamous Epith Cells 0 Urine Bacteria None Ur Culture Indicated? No Urine Opiates Screen None detected Ur Opiates Confirm TNP Ur Oxycodone Screen None detected Urine Methadone Screen None detected Ur Methadone Confirm TNP Ur Barbiturates Screen None detected Ur Barbiturate Confirm TNP Ur Phencyclidine Scrn None detected Urine PCP Confirm TNP Ur Amphetamines Screen None detected U Amphetamines Confirm TNP U Benzodiazepines Scrn None detected U Benzodiazepine Confm TNP Urine Cocaine Screen None detected Urine Cocaine Confirm TNP U Cannabinoids Confirm TNP U Marijuana (THC) Screen None detected Ethyl Alcohol < 0.010 08/04/20 08/04/20 12:08 12:08 WBC 7.9 RBC 5.52 Hgb 16.9 H Hct 49.5 MCV 89.7 MCH 30.6 MCHC 34.1 RDW 11.9 Plt Count 173 MPV 10.8 H Neut % (Auto) 70.0 Lymph % (Auto) 22.6 Perry % (Auto) 6.2 Eos % (Auto) 0.9 Baso % (Auto) 0.3 Lymph # (Auto) 1.78 Perry # (Auto) 0.49 Eos # (Auto) 0.07 Baso # (Auto) 0.02 Absolute Neutrophils 5.52 Sodium 137 Potassium 4.5 Chloride 101 Carbon Dioxide 22 Anion Gap 14.0 BUN 17 Creatinine 0.8 GFR Calculation 92 Glucose 92 Calcium 9.4 Magnesium Total Bilirubin 1.7 H AST 23 ALT 10 Alkaline Phosphatase 59 Total Protein 7.6 Albumin 4.4 Globulin 3.2 Albumin/Globulin Ratio 1.4 TSH 1.17 Urine Color Urine Appearance Urine pH Ur Specific Gibson Urine Protein Urine Glucose (UA) Urine Ketones Urine Occult Blood Urine Nitrate Urine Bilirubin Urine Urobilinogen Ur Leukocyte Esterase Urine RBC Urine WBC Ur Squamous Epith Cells Urine Bacteria Ur Culture Indicated? Urine Opiates Screen Ur Opiates Confirm Ur Oxycodone Screen Urine Methadone Screen Ur Methadone Confirm Ur Barbiturates Screen Ur Barbiturate Confirm Ur Phencyclidine Scrn Urine PCP Confirm Ur Amphetamines Screen U Amphetamines Confirm U Benzodiazepines Scrn U Benzodiazepine Confm Urine Cocaine Screen Urine Cocaine Confirm U Cannabinoids Confirm U Marijuana (THC) Screen Ethyl Alcohol Discharge Plan Patient/Caregiver Discharge Instructions Activity: increase activity as tolerated Diet: Regular Diet Activity Restrictions/Additional Instructions: -Taper clonazepam by 25% each week. Start with 1mg for one week then 0.75mg for one week then 0.5mg for one week then 0.25mg for one week then stop. -Monitor blood pressure twice daily and bring log to PCP Prescriptions: New clonazepam 0.5 mg tablet See Rx Instructions .ROUTE .COMPLEX Qty: 25 RF: 0 Continued escitalopram oxalate 20 mg tablet 20 mg PO QDAY Qty: 90 RF: 4 sildenafil 100 mg tablet 100 mg PO QDAY PRN (Reason: sexual activity) Qty: 30 RF: 6 omeprazole 20 MG tablet,delayed release (DR/EC) 20 mg PO DAILY RF: 0 Discontinued clonazepam 1 mg tablet 1 mg PO QHS Qty: 30 RF: 0 Follow Up Plan Follow up with: Ramez Elam MD, FAAFP [Primary Care Provider] - Patient Disposition: Home, Self-Care Prognosis: Fair Overall status at discharge: patient is progressing back to baseline Discharge Orders: Discharge Order (Routine); Ordered 08/06/20 Ordered By: Michael GORDILLO VTE Deep Vein Thrombosis/Pulmonary Embolism Present on Admission: No
[2020-08-05] MEDS ORDERED: LABETALOL 5 MG/ML ML IV PRN (17:15)
[2020-08-05] MEDS ORDERED: LORazepam 2 MG/ML VIAL IV PRN (17:15)
[2020-08-06] MEDS: 0.9 % SODIUM CHLORIDE 10 ML SYRINGE IV SCH (05:34)
[2020-08-06 06:34] LABS: ALT/SGPT 9 U/L (<40); AST/SGOT 15 U/L (<40); Albumin 3.8 gm/dL (3.2-5.2); Albumin/Globulin Ratio 1.3 (1.0-2.3); Alkaline Phosphatase 60 U/L (39-117); Bilirubin,Total 1.5 mg/dL (0.1-1.0); Blood Urea Nitrogen 13 mg/dL (8-23); Calcium 8.8 mg/dL (8.6-10.4); Carbon Dioxide 28 mmol/L (22-30); Chloride 103 mmol/L (96-108); Globulin 2.9 gm/dL (2.2-3.7); Glomerular Filtration Rate 97; Glucose 93 mg/dL (70-105)
[2020-08-06] MEDS: ESCITALOPRAM 20 MG TABLET PO SCH (08:09)
[2020-08-06] MEDS: clonazePAM 1 MG TABLET PO SCH (08:09)
[2020-08-06] MEDS: DOCUSATE SODIUM 100 MG CAPSULE PO SCH (08:09)
[2020-08-06] MEDS: OMEPRAZOLE 20 MG CAPSULE PO SCH (08:10)
== END 2020-08-06 10:35 | disposition home or self-care (01) | DRG 897 ==
LOC: ED 09:58 → ICU 14:57
PROVIDERS: ADMIT Internal Medicine; ATTEND Internal Medicine

== ENCOUNTER 2020-08-10 11:28 | Inpatient (IN) ==
[2020-08-10] MEDS ORDERED: LORazepam 2 MG/ML VIAL IV ONE (11:43)
[2020-08-10] MEDS ORDERED: OLANZapine 10 MG VIAL IM SCH ×2 (11:45→15:45)
[2020-08-10 12:19] LABS: Basophils # (Auto) 0.06 K/mcL (0.00-0.20); Basophils % (Auto) 0.8 % (0.0-2.0); Eosinophils # (Auto) 0.17 K/mcL (0.00-0.70); Eosinophils % (Auto) 2.2 % (0.0-7.0); Hematocrit 48.7 % (41.0-55.0); Hemoglobin 16.7 g/dL (13.5-16.5); Lymphocytes # (Auto) 1.49 K/mcL (1.50-4.80); Lymphocytes % (Auto) 19.3 % (15.0-49.0); Mean Corpuscular HGB Conc 34.3 g/dL (31.0-36.0); Mean Platelet Volume 10.4 fL (7.4-10.4); Monocytes # (Auto) 0.49 K/mcL (0.10-0.90); Monocytes % (Auto) 6.4 % (1.0-12.0); Neutrophils % (Auto) 71.3 % (38.0-78.0); Platelet Count 164 K/mcL (140-440); RBC 5.41 M/mcL (4.50-5.90); Red Cell Distribution Width 11.8 % (11.5-14.5); WBC 7.7 K/mcL (4.5-11.0)
--- NOTE | 2020-08-10 12:38 | Emergency Department Note ---
HPI General Chief complaint: Psychiatric Symptoms Stated complaint: mental health Time Seen by Provider: 08/10/20 12:33 Source: patient and family Mode of arrival: ambulatory Limitations: no limitations and altered mental status History of Present Illness HPI Narrative: Narrative: Patient presents emergency department for evaluation of altered mental status and agitation. Had a recent hospitalization for the same. states that he had been on clonazepam 2 mg for a couple of years. He ran out of the prescription for 4 days and then was placed on 1 mg clonazepam daily. He had agitation and anxiety with this and presented the emergency department. He is medicated with Ativan and Zyprexa with improvement per the emergency department staff and hospitalized. reports that he was discharged home on 1 mg clonazepam and she is been periodically having to give him an extra half milligram. This morning she thought he may have had a seizure he had an episode where he just kind of stared off and was not responding to her. He was seen at his primary care provider's office and had a second episode while there was not witnessed by his primary care provider but it was witnessed by clinic staff and described as a 2 to 3-minute episode of unresponsiveness without associated tremor or fasciculations and he did appear postictal afterwards. He did not have any loss of control of bowel or bladder. On arrival to the emergency department he is agitated, hugging staff, trying to give knuckle sandwiches. No other complaints. He had a head CT on recent work- up in the emergency department. Related Data Home Medications Medication Instructions Recorded Confirmed omeprazole 20 mg PO DAILY 09/02/16 08/10/20 Previous Rx's Medication Instructions Recorded sildenafil 100 mg tablet 100 mg PO QDAY PRN #30 tab 01/13/20 escitalopram oxalate 20 mg tablet 20 mg PO QDAY #90 tab 01/21/20 clonazepam 1 mg tablet 1 mg PO BID #60 tab 08/10/20 mirtazapine 7.5 mg tablet 7.5 mg PO QHS #60 tab 08/10/20 Allergies Allergy/AdvReac Type Severity Reaction Status Date / Time [place] Allergy Unknown Cough Uncoded 08/10/20 10:38 Review of Systems ROS ROS Narrative: Narrative: As above, otherwise limited due to patient's current mental status. 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 (Acute) Constipation (Chronic) Insomnia (Chronic) Depression (Chronic) Hyperlipidemia (Chronic) MRSA (methicillin resistant staph aureus) culture positive (Chronic ~2003) H/O knee surgery (Chronic) H/O nephrolithotomy with removal of calculi (Chronic ~01/2009) Male erectile disorder (Chronic) DDD (degenerative disc disease), thoracolumbar (Chronic) Sleep apnea (Chronic) H/O hand surgery (Chronic ~1988) H/O shoulder surgery (Chronic ~04/30/15) H/O umbilical hernia repair (Chronic ~1989) Hemorrhoids (Chronic) Kidney stones (Chronic) HTN (hypertension) (Chronic) Pre-diabetes (Chronic) Muscle pain (Chronic) Anxiety (Chronic) Acid reflux (Chronic) History of colonoscopy (Chronic) Muscle strain of right shoulder region (Chronic) Acute shoulder bursitis (Chronic) Contusion of right chest wall (Chronic) Fall (Chronic) Viral URI with cough (Chronic) Wheezing (Chronic) Laceration (Chronic) Medical History Acid reflux Acute shoulder bursitis Anxiety Continue Lexapro 20 mg daily He also takes clonazepam 2 mg nightly for sleep Anxiety DDD (degenerative disc disease), thoracolumbar H/O nephrolithotomy with removal of calculi (~01/2009) Hemorrhoids HTN (hypertension) Well-controlled on lisinopril 2.5 mg daily Low-sodium diet recommended Kidney stones h/o No current complaints Male erectile disorder MRSA (methicillin resistant staph aureus) culture positive (~2003) Left hand index finger Muscle pain Muscle strain of right shoulder region Pre-diabetes Sleep apnea Surgical History H/O hand surgery (~1988) Index finger, left hand smashed H/O knee surgery Right H/O shoulder surgery (~04/30/15) Rotator cuff H/O umbilical hernia repair (~1989) History of colonoscopy Family History Father Arthritis Prostate cancer Skin cancer HTN (hypertension) Anxiety Panic disorder FH: mental illness Mother Dementia Grandfather Alzheimers disease Paternal - FH: mental illness Paternal Grandmother Heart attack Paternal - Heart disease, congenital Paternal Diabetes mellitus, type II Maternal - Cancer Maternal Uncle Heart disease, congenital Paternal CAD (coronary artery disease) Paternal Aunt Colon cancer 2 Maternal Family/Other Cancer Siblings Uterine cancer Sibilings Diverticulitis Siblings Social History Smoking Status: Never smoker Alcohol Intake Frequency: does not drink Substance Use: does not use Exam Narrative Narrative: Narrative: General Limitations: no limitations and altered mental status Head Head: Present atraumatic and normocephalic Eye Eye: Present normal appearance, PERRL and EOMI ENT ENT: Present normal exam, normal oropharynx and mucous membranes moist Neck Neck: Present normal inspection and full ROM Respiratory Respiratory: Absent respiratory distress Cardiovascular Cardiovascular: Present regular rate and normal rhythm Extremities Extremities: Present normal inspection Neurological Neurological: Present alert and CN II-XII intact; Absent motor sensory deficit Psychiatric Psychiatric: Present agitated Skin Skin: Present warm (WNL) and dry Course Vital Signs Vital signs: Vital Signs Pulse Rate 86 08/10/20 11:29 Respiratory Rate 22 08/10/20 11:29 Blood Pressure 174/96 08/10/20 11:29 Pulse Oximetry (%) 97 08/10/20 11:29 Temperature 97.8 F 08/10/20 15:50 Pulse Rate 58 L 08/10/20 15:50 Respiratory Rate 18 08/10/20 15:50 Blood Pressure 151/95 08/10/20 15:50 Pulse Oximetry (%) 95 08/10/20 15:50 [facility] MDM Narrative Medical decision making narrative: Narrative: EKG shows sinus rhythm, no acute ischemic changes, borderline prolonged QTC. Patient is medicated with Zyprexa and Ativan with significant improvement. I spoke with the on-call hospitalist. Case reviewed in detail over the phone. Hospitalist evaluated the patient in the emergency department and agreed with admission. CT of the head was not repeated today patient had this performed recently and has nonfocal neuro exam today. Discussed findings with the patient's . Her questions were answered. She is agreeable with the plan. Lab Data Result diagrams: 08/10/20 11:45 08/10/20 11:45 Labs: Lab Results 08/10/20 08/10/20 08/10/20 Range/Units 11:45 11:45 11:45 WBC 7.7 (4.5-11.0) K/mcL RBC 5.41 (4.50-5.90) M/mcL Hgb 16.7 H (13.5-16.5) g/dL Hct 48.7 (41.0-55.0) % MCV 90.0 (80.0-100.0) fL MCH 30.9 (26.0-34.0) pg MCHC 34.3 (31.0-36.0) g/dL RDW 11.8 (11.5-14.5) % Plt Count 164 (140-440) K/mcL MPV 10.4 (7.4-10.4) fL Neut % (Auto) 71.3 (38.0-78.0) % Lymph % (Auto) 19.3 (15.0-49.0) % [place] % (Auto) 6.4 (1.0-12.0) % Eos % (Auto) 2.2 (0.0-7.0) % Baso % (Auto) 0.8 (0.0-2.0) % Lymph # (Auto) 1.49 L (1.50-4.80) K/mcL [place] # (Auto) 0.49 (0.10-0.90) K/mcL Eos # (Auto) 0.17 (0.00-0.70) K/mcL Baso # (Auto) 0.06 (0.00-0.20) K/mcL Absolute Neutrophils 5.50 (1.80-8.00) K/mcL Sodium 139 (133-145) mmol/L Potassium 4.4 (3.3-5.1) mmol/L Chloride 102 (96-108) mmol/L Carbon Dioxide 26 (22-30) mmol/L Anion Gap 11.0 (8.0-16.0) BUN 18 (8-23) mg/dL Creatinine 0.9 (0.7-1.2) mg/dL GFR Calculation 87 Glucose 97 (70-105) mg/dL Calcium 9.5 (8.6-10.4) mg/dL Total Bilirubin 1.0 (0.1-1.0) mg/dL AST 26 (<40) U/L ALT 15 (<40) U/L Alkaline Phosphatase 71 (39-117) U/L Total Protein 8.0 (5.9-8.4) gm/dL Albumin 4.4 (3.2-5.2) gm/dL Globulin 3.6 (2.2-3.7) gm/dL Albumin/Globulin Ratio 1.2 (1.0-2.3) TSH 1.45 (0.27-5.01) uIU/mL Prolactin (4.0-15.2) ng/mL Ethyl Alcohol < 0.010 (<0.010) gm/dL 08/10/20 Range/Units 11:45 WBC (4.5-11.0) K/mcL RBC (4.50-5.90) M/mcL Hgb (13.5-16.5) g/dL Hct (41.0-55.0) % MCV (80.0-100.0) fL MCH (26.0-34.0) pg MCHC (31.0-36.0) g/dL RDW (11.5-14.5) % Plt Count (140-440) K/mcL MPV (7.4-10.4) fL Neut % (Auto) (38.0-78.0) % Lymph % (Auto) (15.0-49.0) % Emanuel % (Auto) (1.0-12.0) % Eos % (Auto) (0.0-7.0) % Baso % (Auto) (0.0-2.0) % Lymph # (Auto) (1.50-4.80) K/mcL Emanuel # (Auto) (0.10-0.90) K/mcL Eos # (Auto) (0.00-0.70) K/mcL Baso # (Auto) (0.00-0.20) K/mcL Absolute Neutrophils (1.80-8.00) K/mcL Sodium (133-145) mmol/L Potassium (3.3-5.1) mmol/L Chloride (96-108) mmol/L Carbon Dioxide (22-30) mmol/L Anion Gap (8.0-16.0) BUN (8-23) mg/dL Creatinine (0.7-1.2) mg/dL GFR Calculation Glucose (70-105) mg/dL Calcium (8.6-10.4) mg/dL Total Bilirubin (0.1-1.0) mg/dL AST (<40) U/L ALT (<40) U/L Alkaline Phosphatase (39-117) U/L Total Protein (5.9-8.4) gm/dL Albumin (3.2-5.2) gm/dL Globulin (2.2-3.7) gm/dL Albumin/Globulin Ratio (1.0-2.3) TSH (0.27-5.01) uIU/mL Prolactin 10.9 (4.0-15.2) ng/mL Ethyl Alcohol (<0.010) gm/dL ED POC Tests ED POC Tests: NOMAN - SARS Antigen Negative Discharge Plan Patient/Caregiver Discharge Instructions Pt seen by DATASTAGE DEVELOPER/PA only: No Clinical Impression: Altered mental status, Agitation, Anxiety Patient Disposition: Xfer As Inpt ([facility]) Discharge Date/Time: 08/10/20 15:37
--- NOTE | 2020-08-10 12:40 | EKG ---
[facility] Test Date: 2020-08-10 Pat Name: Jose Luis Meyer Department: ED Room: Gender: Male [employer]: : 1950 Requested By: Red Fernandez Order Number: [id number] Reading MD: Chris Goldberg M.D. Measurements Intervals [place] Rate: 89 P: 67 PA: 145 QRS: -21 QRSD: 109 T: 27 QT: 396 QTc: 482 Interpretive Statements Sinus rhythm Borderline left axis deviation Borderline prolonged QT interval BORDERLINE T ABNORMALITIES, INFERIOR LEADS Since previous ECG of 08-04-2020, INCREASED QTc ABNORMAL ECG Electronically Signed On 08-10-2020 12:40:19 PDT by Chris Goldberg M.D. [place] [place]/[id number].pdf
[2020-08-10 12:41] LABS: Alcohol, Blood < 10.0 mg/dL; Alcohol,Blood < 0.010 gm/dL (<0.010)
[2020-08-10 12:53] LABS: ALT/SGPT 15 U/L (<40); AST/SGOT 26 U/L (<40); Albumin 4.4 gm/dL (3.2-5.2); Albumin/Globulin Ratio 1.2 (1.0-2.3); Alkaline Phosphatase 71 U/L (39-117); Blood Urea Nitrogen 18 mg/dL (8-23); Calcium 9.5 mg/dL (8.6-10.4); Carbon Dioxide 26 mmol/L (22-30); Chloride 102 mmol/L (96-108); Globulin 3.6 gm/dL (2.2-3.7); Glomerular Filtration Rate 87; Glucose 97 mg/dL (70-105); Thyroid Stimulating Hormone 1.45 uIU/mL (0.27-5.01)
--- NOTE | 2020-08-10 14:42 | Internal Med History&Physical ---
HPI History of Present Illness Patient information: Note initiated : 08/10/20 at 2:40 pm Service Date, if different from initiated Date: Patient: Jose Luis Meyer a 70 y/o M admitted from PCP's office with agitation and suspect Medication withdraw Chief Complaint: agitation, History of present illness: Mr. Meyer is a 70 year old Pleasant male with no significant PMHx except anxiety disorder sent to ED from PCP's office with agitation and being restless. Pt has anxiety and is on Clonazepam. The dose of Clonazepam has been changed recently. According to pt's , the PCP tried to taper the dose of Clonazepam recently and decreased from 2mg qhs to 1 mg . Pt was hospitalized 08/04- due to withdraw from Clonazepam after he ran out of his pills for 4 days. He was discharged home with 1mg bid. Since yesterday pt had episodes of being confused and disoriented and zone out per . These last for few minutes. Pt had another episode in PCP's office. In Ed her received Zyprexa 10mg and currently he is feeling well and calm and pleasant. Pt denies CP,SOB,N/V, fever, chills, HOOKS, Visual changes. He dos not smoke nor drink ETOH. He denies illicit drug use. 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 Review of Systems All systems: reviewed and no additional remarkable complaints except as stated PFSH PFSH All Active Problems Anxiety (Acute) Benzodiazepine withdrawal (Acute) Sedative, hypnotic or anxiolytic dependence with withdrawal with perceptual disturbance (Acute) Constipation (Chronic) Insomnia (Chronic) Depression (Chronic) Hyperlipidemia (Chronic) MRSA (methicillin resistant staph aureus) culture positive (Chronic ~2003) H/O knee surgery (Chronic) H/O nephrolithotomy with removal of calculi (Chronic ~01/2009) Male erectile disorder (Chronic) DDD (degenerative disc disease), thoracolumbar (Chronic) Sleep apnea (Chronic) H/O hand surgery (Chronic ~1988) H/O shoulder surgery (Chronic ~04/30/15) H/O umbilical hernia repair (Chronic ~1989) Hemorrhoids (Chronic) Kidney stones (Chronic) HTN (hypertension) (Chronic) Pre-diabetes (Chronic) Muscle pain (Chronic) Anxiety (Chronic) Acid reflux (Chronic) History of colonoscopy (Chronic) Muscle strain of right shoulder region (Chronic) Acute shoulder bursitis (Chronic) Contusion of right chest wall (Chronic) Fall (Chronic) Viral URI with cough (Chronic) Wheezing (Chronic) Laceration (Chronic) Medical History Acid reflux Acute shoulder bursitis Anxiety Continue Lexapro 20 mg daily He also takes clonazepam 2 mg nightly for sleep Anxiety DDD (degenerative disc disease), thoracolumbar H/O nephrolithotomy with removal of calculi (~01/2009) Hemorrhoids HTN (hypertension) Well-controlled on lisinopril 2.5 mg daily Low-sodium diet recommended Kidney stones h/o No current complaints Male erectile disorder MRSA (methicillin resistant staph aureus) culture positive (~2003) Left hand index finger Muscle pain Muscle strain of right shoulder region Pre-diabetes Sleep apnea Surgical History H/O hand surgery (~1988) Index finger, left hand smashed H/O knee surgery Right H/O shoulder surgery (~04/30/15) Rotator cuff H/O umbilical hernia repair (~1989) History of colonoscopy Family History Father Arthritis Prostate cancer Skin cancer HTN (hypertension) Anxiety Panic disorder FH: mental illness Mother Dementia Grandfather Alzheimers disease Paternal - FH: mental illness Paternal Grandmother Heart attack Paternal - Heart disease, congenital Paternal Diabetes mellitus, type II Maternal - Cancer Maternal Uncle Heart disease, congenital Paternal CAD (coronary artery disease) Paternal Aunt Colon cancer 2 Maternal Family/Other Cancer Siblings Uterine cancer Sibilings Diverticulitis Siblings Social History marital status: occupational status: employed occupation: [employer] alcohol intake frequency: does not drink substance use type: does not use MEDS/ALLERGIES Home Medications and Allergies Home Medications Medication Instructions Recorded Confirmed Type omeprazole 20 mg PO DAILY 09/02/16 08/10/20 History sildenafil 100 mg tablet 100 mg PO QDAY PRN #30 tab 01/13/20 08/10/20 Rx escitalopram oxalate 20 mg tablet 20 mg PO QDAY #90 tab 01/21/20 08/10/20 Rx clonazepam 1 mg tablet 1 mg PO BID #60 tab 08/10/20 08/10/20 Rx mirtazapine 7.5 mg tablet 7.5 mg PO QHS #60 tab 08/10/20 08/10/20 Rx Allergies Allergy/AdvReac Type Severity Reaction Status Date / Time No Known Drug Allergies Allergy Verified 08/10/20 11:32 [place] Dust Allergy Unknown Cough Uncoded 08/10/20 10:38 EXAM Constitutional Vitals: Pulse Resp BP Pulse Ox 57 L 22 174/96 93 08/10/20 14:24 08/10/20 11:29 08/10/20 11:29 08/10/20 14:24 General appearance: cooperative and no acute distress Head Head exam: Present atraumatic, normal inspection and normocephalic Eye Eye exam: Present EOMI, normal appearance and PERRL Neck Neck exam: Present full ROM and normal inspection Respiratory Respiratory exam: Present normal respiratory exam and CTAB Cardiovascular Cardiovascular exam: Present normal rate and rhythm, +S1 and +S2; Absent diastolic murmur and systolic murmur GI/Abdominal GI/Abdominal exam: Present normal bowel sounds and soft; Absent hernia, mass, rebound and tenderness Extremities Exam Extremities exam: Present full ROM, normal capillary refill and normal inspection; Absent calf tenderness and joint swelling Back Exam Back exam: Present full ROM Neurological Exam Neurological exam: Present alert, CN II-XII intact, oriented X3 and reflexes normal Psychiatric Psychiatric exam: Present normal affect and normal mood Skin Skin exam: Present dry, normal color and warm DATA Data Completed and Pending Labs: Labs from last 24 hours 08/10/20 08/10/20 08/10/20 11:56 11:45 11:45 WBC RBC Hgb Hct MCV MCH MCHC RDW Plt Count MPV Neut % (Auto) Lymph % (Auto) [place] % (Auto) Eos % (Auto) Baso % (Auto) Lymph # (Auto) [place] # (Auto) Eos # (Auto) Baso # (Auto) Absolute Neutrophils Sodium Potassium Chloride Carbon Dioxide Anion Gap BUN Creatinine GFR Calculation Glucose Calcium Total Bilirubin AST ALT Alkaline Phosphatase Total Protein Albumin Globulin Albumin/Globulin Ratio TSH Prolactin 10.9 Urine Opiates Screen Pending Ur Opiates Confirm Pending Ur Oxycodone Screen Pending Urine Methadone Screen Pending Ur Methadone Confirm Pending Ur Barbiturates Screen Pending Ur Barbiturate Confirm Pending Ur Phencyclidine Scrn Pending Urine PCP Confirm Pending Ur Amphetamines Screen Pending U Amphetamines Confirm Pending U Benzodiazepines Scrn Pending U Benzodiazepine Confm Pending Urine Cocaine Screen Pending Urine Cocaine Confirm Pending U Cannabinoids Confirm Pending U Marijuana (THC) Screen Pending Ethyl Alcohol < 0.010 08/10/20 08/10/20 11:45 11:45 WBC 7.7 RBC 5.41 Hgb 16.7 H Hct 48.7 MCV 90.0 MCH 30.9 MCHC 34.3 RDW 11.8 Plt Count 164 MPV 10.4 Neut % (Auto) 71.3 Lymph % (Auto) 19.3 [place] % (Auto) 6.4 Eos % (Auto) 2.2 Baso % (Auto) 0.8 Lymph # (Auto) 1.49 L [place] # (Auto) 0.49 Eos # (Auto) 0.17 Baso # (Auto) 0.06 Absolute Neutrophils 5.50 Sodium 139 Potassium 4.4 Chloride 102 Carbon Dioxide 26 Anion Gap 11.0 BUN 18 Creatinine 0.9 GFR Calculation 87 Glucose 97 Calcium 9.5 Total Bilirubin 1.0 AST 26 ALT 15 Alkaline Phosphatase 71 Total Protein 8.0 Albumin 4.4 Globulin 3.6 Albumin/Globulin Ratio 1.2 TSH 1.45 Prolactin Urine Opiates Screen Ur Opiates Confirm Ur Oxycodone Screen Urine Methadone Screen Ur Methadone Confirm Ur Barbiturates Screen Ur Barbiturate Confirm Ur Phencyclidine Scrn Urine PCP Confirm Ur Amphetamines Screen U Amphetamines Confirm U Benzodiazepines Scrn U Benzodiazepine Confm Urine Cocaine Screen Urine Cocaine Confirm U Cannabinoids Confirm U Marijuana (THC) Screen Ethyl Alcohol A/P Narrative A/P Narrative: 70 years old male with Anxiety disorder admitted with following problem list : # AMS, Agitation /restlessness - Consistent with benzodiazepine withdraw. - No evidence of SZ activities. - S/p Zyprexa 10 mg IV and Ativan 2mg in ED - Resume home Clonazepam higher dose of 1.5mg bid. Use Zyprexa and Ativan Prn agitation. - Closely monitor for further S&S of BZ withdraw # Insomnia. - Resume home Mirtazapine which started recently - Resume home Escitalopram 20mg daily. DVT ppx. Ambulation. No need for chemical PPX Code Full Alternative decision maker. . Plan of care d/p pt and his in detail. Dispo: Likely Dc home within 24 hours if remain stable. Time Spent With Patient Time: Total time spent is greater than 50% in coordination of care (as documented) at patient's floor/unit and/or counseling patient:
[2020-08-10] MEDS ORDERED: DOCUSATE SODIUM 100 MG CAPSULE PO PRN (15:45)
[2020-08-10] MEDS ORDERED: ONDANSETRON 4 MG/2 ML VIAL IV PRN (15:45)
[2020-08-10] MEDS ORDERED: ONDANSETRON 4 MG ODT TABLET SL PRN (15:45)
[2020-08-10] MEDS ORDERED: ACETAMINOPHEN 325 MG TABLET PO PRN (15:45)
[2020-08-10] MEDS ORDERED: IBUPROFEN 600 MG TABLET PO PRN (15:45)
[2020-08-10 17:26] LABS: Amphetamine Screen,Urine None detected; Barbiturate Screen,Urine None detected; Benzodiazepines Screen,Urine None detected; Cannabinoid Screen,Urine None detected; Cocaine Screen,Urine None detected; Opiate Screen,Urine None detected; Oxycodone, Urine Screen None detected; Phencyclidine Screen,Urine None detected
[2020-08-10] MEDS: clonazePAM 0.5 MG TABLET PO SCH (20:54)
[2020-08-10] MEDS: 0.9 % SODIUM CHLORIDE 10 ML SYRINGE IV SCH (20:58)
[2020-08-10] MEDS ORDERED: MIRTAZAPINE 15 MG TABLET PO SCH ×2 (21:00)
[2020-08-10] MEDS ORDERED: clonazePAM 0.5 MG TABLET PO SCH (21:00)
[2020-08-11] MEDS: 0.9 % SODIUM CHLORIDE 10 ML SYRINGE IV SCH ×2 (05:54→14:10)
[2020-08-11] MEDS ORDERED: OMEPRAZOLE 20 MG CAPSULE PO SCH ×2 (07:30)
[2020-08-11 07:41] LABS: Blood Urea Nitrogen 18 mg/dL (8-23); Calcium 8.6 mg/dL (8.6-10.4); Carbon Dioxide 26 mmol/L (22-30); Chloride 103 mmol/L (96-108); Glomerular Filtration Rate 92; Glucose 127 mg/dL (70-105)
[2020-08-11] MEDS: clonazePAM 0.5 MG TABLET PO SCH (08:05)
[2020-08-11] MEDS ORDERED: ESCITALOPRAM 20 MG TABLET PO SCH ×2 (09:00)
--- NOTE | 2020-08-11 16:48 | Discharge Summary ---
Discharge Provider Provider Patient information: Note initiated : 08/11/20 at 4:43 pm Service Date, if different from initiated Date: Patient: Jose Luis Meyer 70 y/o M admitted on 08/10/20 for mental health. Chief Complaint: Agitation due to BZ withdraw Date of admission: 08/10/20 15:34 Discharge date: 08/11/20 Primary care physician: Ramez Elam M.D., F.A.A.F.P. Consults: 08/10/20 Consult to Physician [CONS] Stat Comment: Consulting Provider: Devon Shepherd Reason For Exam: Physician to Consult Discharge Meds Discharge Medications Home Medications omeprazole 20 mg PO QAM 09/02/16 [History Confirmed 08/10/20 Last Taken 08/10/20 07:30] sildenafil 100 mg tablet 100 mg PO QDAY PRN #30 tab 01/13/20 [Rx Confirmed 08/10/20 Last Taken 07/27/20] escitalopram oxalate 20 mg tablet 20 mg PO QDAY #90 tab 01/21/20 [Rx Confirmed 08/10/20 Last Taken 08/10/20 08:00] mirtazapine 7.5 mg tablet 7.5 mg PO QHS #60 tab 08/10/20 [Rx Confirmed 08/10/20 Last Taken Unknown] clonazepam 1.5 mg PO BID #40 tab 08/11/20 [Rx Last Taken Unknown] COURSE Hospital Course Hospital course: 70 years old male with Anxiety disorder admitted with following problem list : # AMS, Agitation /restlessness Most likely due to Benzodiazepine withdraw . - Consistent with benzodiazepine withdraw since he has been on Clonazepam for long time. - No evidence of SZ activities. CT head normal. TSH normal. All CBC, CMP within normal limits. - S/p Zyprexa 10 mg IV and Ativan 2mg in ED - Resumed home Clonazepam higher dose of 1.5mg bid. - No Suicidal. - Consulted Tele Psych who evaluated the patient and advised this is likely due to benzodiazepine withdrawal and recommended very slowly tapering clonazepam. The psychiatrist recommended that patient should be off clonazepam due to long- term effect. She recommended slow tapering over months. Outpatient psych follow-up if patient symptom persist over long period of time. -Continue clonazepam 1.5 mg twice daily. Taper to 1 mg twice daily in 2-3 weeks time. Outpatient follow-up with PCP # Insomnia. - Resume home Mirtazapine which started recently - Resume home Escitalopram 20mg daily. Disposition: Patient discharged home Condition on discharge: Hemodynamically stable. Tolerated p.o. Discharge activity: As tolerated Discharge diet: Healthy, low-fat Discharge medication: See med reconciliation form Discharge follow-up: Primary care physician within 1 week for post hospital follow-up Discharge diagnosis: AMS/Agitation due to benzodiazepine withdrawal Time Spent with Patient Time attestation: Total time spent providing and/or coordinating discharge services: EXAM Constitutional Vitals: Temp Pulse Resp BP Pulse Ox 97.7 F 78 18 124/83 96 08/11/20 12:00 08/11/20 12:00 08/11/20 12:00 08/11/20 12:00 08/11/20 12:00 Additional findings Additional findings: Patient is awake alert oriented x3. Comfortable and appropriate. Discharge Data Data Completed and Pending Labs on day of discharge: Labs from last 24 hours 08/11/20 08/10/20 05:37 11:56 Sodium 137 Potassium 3.8 Chloride 103 Carbon Dioxide 26 Anion Gap 8.0 BUN 18 Creatinine 0.8 GFR Calculation 92 Glucose 127 H Calcium 8.6 Urine Opiates Screen None detected Ur Opiates Confirm TNP Ur Oxycodone Screen None detected Urine Methadone Screen None detected Ur Methadone Confirm TNP Ur Barbiturates Screen None detected Ur Barbiturate Confirm TNP Ur Phencyclidine Scrn None detected Urine PCP Confirm TNP Ur Amphetamines Screen None detected U Amphetamines Confirm TNP U Benzodiazepines Scrn None detected U Benzodiazepine Confm TNP Urine Cocaine Screen None detected Urine Cocaine Confirm TNP U Cannabinoids Confirm TNP U Marijuana (THC) Screen None detected Discharge Plan Patient/Caregiver Discharge Instructions Activity: increase activity as tolerated Diet: Regular Diet Instructions: Altered Mental Status (GEN), Anxiety (DC) Activity Restrictions/Additional Instructions: Resume home diet as tolerated. Increase activity as tolerated. Take all medication as directed. Your prescription is with your discharge paperwork. Pain medication can cause constipation; take an over the counter stool softener and/or laxative while on pain medication. Some medications were electronically transmitted to pharmacy Take your prescription, insurance cards, and photo ID to continuous pickling line pickler your medication. Return to ER for fever, chills, uncontrolled pain, inability to urinate or have a bowel movement, nausea and/or vomiting, swelling, redness, signs of infection, shortness of breath, chest pain, return of symptoms, or other acute symptom This discharge packet is provided to you to help keep you informed about your care. We want to ensure you get everything you need when you go home. You will also be receiving a call from us in a few days to follow up with you and see how you are doing since your discharge. This gives us a chance to listen to any concerns you maybe experiencing since you were discharged or any additional needs you may have, as well as providing us feedback on your care experience. We strive to always provide excellent care and thank you for your feedback and for choosing [facility]. Prescriptions: Continued escitalopram oxalate 20 mg tablet 20 mg PO QDAY Qty: 90 RF: 4 sildenafil 100 mg tablet 100 mg PO QDAY PRN (Reason: sexual activity) Qty: 30 RF: 6 mirtazapine 7.5 mg tablet 7.5 mg PO QHS Qty: 60 RF: 6 omeprazole 20 MG tablet,delayed release (DR/EC) 20 mg PO QAM RF: 0 Changed clonazepam 1 mg tablet 1.5 mg PO BID Qty: 40 RF: 0 Follow Up Plan Follow up with: Ramez Elam MD, FAAFP [Primary Care Provider] - 08/27/20 10:00 am (Check-in at 9:45 am) Patient Disposition: Home, Self-Care Discharge Orders: Discharge Order (Routine); Ordered 08/11/20 Ordered By: Devon GORDILLO VTE Deep Vein Thrombosis/Pulmonary Embolism Present on Admission: No
--- NOTE | 2020-08-11 17:05 | Behavioral Health Consult ---
HPI History of Present Illness Patient information: Name: Jose Luis Meyer : 1950 Date: 08/11/20 Time: 6:06pm [employer]ATING [employer]OR [facility] Length of consult: 40 minutes Note initiated : 08/11/20 at 5:00 pm History of present illness: This evaluation was conducted via telepsychiatry with the assistance of onsite staff Reason for consult: psychiatric evaluation Requested byDr. Shepherd History of Present Illness: 70 y.o M with psychiatric history of anxiety currently admitted for agitation and restlessness. Per primary provider, patient has been on Klonopin and dose was recently lowered by PCP which required hospitalization for benzodiazepine withdrawal from 08/04-08/06. Since 08/09, he has been noted to act odd. He is not confused or agitated. Psychiatry consulted for evaluation On interview, reports he is here because he had a bad anxiety attack. He noted he went to doctors appointment yesterday and acted like his son with down syndrome to get the doctors attention. He now states he should not have done that. He reports some symptoms of anxiety and depression prior to hospitalization. Denies SI, HI and AVH. HE states he was being tapered off Klonopin because he did not think it was beneficial. Collateral Anitha was at bedside and provided collateral with patients permission. She notes patient did have anxiety attack Monday and saw his PCP Monday. While at PCP office, they were concerned patient had a seizure because he was acting weird and not talking. They put him in a wheelchair and he tried to act like his son with down syndrome-rubbing peoples heads and head banging. He also tried to jump out of the truck while they were en-route to ED. reports he has had t rouble with sleep and has been acting differently since last week. He had run out of klonopin for 4 days and had to be hospitalized for withdrawal. He had been on 2mg for greater than 2 years and . She denies any previous odd or concerning behaviors. Sleep issues: he was sleeping about 3-4 hours a night Psychiatric History/Treatment History: Past diagnoses: anxiety, ADHD Hospitalizations: denies Current Treatment: PCP prescribes medications. Saw a psychologist many years ago Suicide Assessment: PSS-3: 1) Over the past 2 weeks have you felt down, depressed or hopeless? No 2) Over the past 2 weeks have you had thoughts of killing yourself? No 3) Have you ever in your life attempted to kill yourself? No If yes, then when? - Within the past 24h? (Y/N), past month? (Y/N), between 1-6 months (Y/N), > 6 months (Y/N) PSS-3 Secondary Screen If #2 is yes or #3 is yes within the past 6 months, then complete secondary screen: 1) Positive on PSS-3 questions 2 & 3 active SI with a past attempt? 2) Have you been thinking about how you might kill yourself? 3) Have you had some intention of acting on your thoughts? 4) Lifetime psychiatric hospitalization? 5) Has drinking or substance abuse ever been a problem for you? 6) Current irritability, agitation, or aggression? PSS-3 Secondary Screen Scoring: (Mild/Moderate/Severe) Mild (0-2) No current attempt and no plan/intent Moderate (3-4) No current attempt, Plan OR intent but not both Severe (5-6) Current [facility] with [facility] AND [facility] Safety Assessment: Risk Factors: Stressors: medication changes Attempts/Self-injury: denies Impulsivity: yes Drug/Alcohol History: denies Trauma history: deferred Access to firearms: none HI/Violence/Property destruction: no Legal: no Family Psych History: unknown Family History of suicide: unknown Protective Factors: Internal: External: Social supports/ Therapeutic relationships: Relationship history: Living situation: lives with Employment: retired in February after retiring from [employer] Education: high school Responsibility to family/children/work: yes Future orientation: yes PFSH PFSH All Active Problems (Updated 08/10/20 @ 17:13 by Red Fernandez MD) Agitation (Acute) Anxiety (Acute) Altered mental status (Acute) Anxiety (Acute) Benzodiazepine withdrawal (Acute) Sedative, hypnotic or anxiolytic dependence with withdrawal with perceptual disturbance (Acute) Constipation (Chronic) Insomnia (Chronic) Depression (Chronic) Hyperlipidemia (Chronic) MRSA (methicillin resistant staph aureus) culture positive (Chronic ~2003) H/O knee surgery (Chronic) H/O nephrolithotomy with removal of calculi (Chronic ~01/2009) Male erectile disorder (Chronic) DDD (degenerative disc disease), thoracolumbar (Chronic) Sleep apnea (Chronic) H/O hand surgery (Chronic ~1988) H/O shoulder surgery (Chronic ~04/30/15) H/O umbilical hernia repair (Chronic ~1989) Hemorrhoids (Chronic) Kidney stones (Chronic) HTN (hypertension) (Chronic) Pre-diabetes (Chronic) Muscle pain (Chronic) Anxiety (Chronic) Acid reflux (Chronic) History of colonoscopy (Chronic) Muscle strain of right shoulder region (Chronic) Acute shoulder bursitis (Chronic) Contusion of right chest wall (Chronic) Fall (Chronic) Viral URI with cough (Chronic) Wheezing (Chronic) Laceration (Chronic) Medical History Acid reflux Acute shoulder bursitis Anxiety Continue Lexapro 20 mg daily He also takes clonazepam 2 mg nightly for sleep Anxiety DDD (degenerative disc disease), thoracolumbar H/O nephrolithotomy with removal of calculi (~01/2009) Hemorrhoids HTN (hypertension) Well-controlled on lisinopril 2.5 mg daily Low-sodium diet recommended Kidney stones h/o No current complaints Male erectile disorder MRSA (methicillin resistant staph aureus) culture positive (~2003) Left hand index finger Muscle pain Muscle strain of right shoulder region Pre-diabetes Sleep apnea Surgical History H/O hand surgery (~1988) Index finger, left hand smashed H/O knee surgery Right H/O shoulder surgery (~04/30/15) Rotator cuff H/O umbilical hernia repair (~1989) History of colonoscopy Family History Father Arthritis Prostate cancer Skin cancer HTN (hypertension) Anxiety Panic disorder FH: mental illness Mother Dementia Grandfather Alzheimers disease Paternal - FH: mental illness Paternal Grandmother Heart attack Paternal - Heart disease, congenital Paternal Diabetes mellitus, type II Maternal - Cancer Maternal Uncle Heart disease, congenital Paternal CAD (coronary artery disease) Paternal Aunt Colon cancer 2 Maternal Family/Other Cancer Siblings Uterine cancer Sibilings Diverticulitis Siblings Social History marital status: occupational status: employed occupation: [employer] alcohol intake frequency: does not drink substance use type: does not use MEDS/ALLERGIES Home Medications and Allergies Home Medications Medication Instructions Recorded Confirmed Type omeprazole 20 mg PO QAM 09/02/16 08/10/20 History sildenafil 100 mg tablet 100 mg PO QDAY PRN #30 tab 01/13/20 08/10/20 Rx escitalopram oxalate 20 mg tablet 20 mg PO QDAY #90 tab 01/21/20 08/10/20 Rx mirtazapine 7.5 mg tablet 7.5 mg PO QHS #60 tab 08/10/20 08/10/20 Rx clonazepam 1.5 mg PO BID #40 tab 08/11/20 Rx Allergies Allergy/AdvReac Type Severity Reaction Status Date / Time No Known Drug Allergies Allergy Unverified 08/11/20 06:38 Physical Examination Vital Signs Vital signs: Temp Pulse Resp BP Pulse Ox 97.7 F 78 18 124/83 96 08/11/20 12:00 08/11/20 12:00 08/11/20 12:00 08/11/20 12:00 08/11/20 12:00 Additional Exam Additional exam: Mental Status Exam: Appearance and attire: decently groomed, appears stated age Attitude and behavior: cooperative and good eye contact Motor: some restlessness Speech: normal volume, rate and tone Mood: good Affect: mood congruent Association and thought processes:circumstantial, odd at times Thought content: no SI, no HI Perception: no AVH, no evidence of delusions Sensorium, memory, and orientation: A&Ox person, place, situation Intellectual functioning: average Insight and judgment: fair Results Laboratory Findings CBC and BMP: 08/10/20 11:45 08/11/20 05:37 Abnormal lab findings: Abnormal Labs 08/10/20 08/11/20 11:45 05:37 Hgb 16.7 H Lymph # (Auto) 1.49 L Glucose 127 H Alcohol Toxicology: ABG 08/10/20 11:45 Ethyl Alcohol < 0.010 A/P Narrative A/P Narrative: Impression/Risk Assessment: Current Suicide Risk Elevated?: No Current Violence Risk Elevated? : No Ability to care for self: may need some assistance Summary: 70 y.o M with psychiatric history of anxiety currently admitted for agitation and restlessness. Per providers, patient and , it appears patient has had some behavioral changes and agitation in the context of klonopin withdrawal/ changes to medication. On interview, he did have some odd behaviors but it was unclear if this was his personality/behavioral. I have little suspicion for underlying thought disorder given the acute onset of symptoms. It could be that patient is still having residual effects from recent medication changes and/or klonopin withdrawal. Other things to consider would be neurocognitive disorder. He would need to continually be assessed to achieve diagnostic clarity. At this time, he does not require psychiatric hospitalization Diagnosis: Anxiety unspecified Altered mental status/Agitation, improving Treatment Plan: Level of Care: Inpatient Psychiatric Clearance: Medically admitted. He does not require psychiatric hospitalization and can be discharged home with OP mental health referral Observation level -NA Pharmacological: Recommend continuing klonopin 1.5mg BID for now. He will likely need slow/long taper given response to abrupt changes. Continue Lexapro and Remerron at current doses Patient psychotic? No Therapy: supportive Follow up needed while in hospital?: NA Plan discussed with Dr. Cora Pate MD Psychiatrist Time Spent With Patient Time: Total time spent is greater than 50% in coordination of care (as documented) at patient's floor/unit and/or counseling patient:
== END 2020-08-11 17:35 | disposition home or self-care (01) | DRG 897 ==
LOC: ED 11:28 → MEDSUR 15:34
PROVIDERS: ADMIT Internal Medicine; ATTEND Internal Medicine